=== PATIENT | female | born 1930 | race Caucasian/White ===

== ENCOUNTER 2017-05-23 14:56 | Inpatient (IN) | payer OTHER, MEDICARE ==
[2017-05-23] MEDS ORDERED: ALBUTEROL 200 PUFFS/18 GM MDI IH PRN (16:19)
[2017-05-23] MEDS ORDERED: ACETAMINOPHEN 325 MG TAB PO PRN (16:59)
[2017-05-23] MEDS ORDERED: BISACODYL 10 MG SUPP PR PRN (17:00)
[2017-05-23] MEDS ORDERED: POLYETHYLENE GLYCOL 3350 17 GM PKT PO PRN (17:03)
--- NOTE | 2017-05-23 17:17 | PDOREHIP ---
Admission [facility] - Admission - 3 Day Assessment Period Admission Date/Day 1: 05/23/17 Day 2: 05/24/17 Day 3: 05/25/17 - Active Diagnoses Comorbidities and Co-existing Conditions at Admission: 28427. None of the Above - Skin Conditions Unhealed Pressure Ulcer (1 or more/Stage 1 or >)-Admission: 0. No
--- NOTE | 2017-05-23 17:42 | GHP ---
[f rep st] HISTORY AND PHYSICAL POST ADMISSION PHYSICIAN EVALUATION AND REHABILITATION TREATMENT PLAN DATE OF ADMISSION: 05/23/2017 DATE OF EVALUATION: 05/23/2017. TIME OF EVALUATION: 1625. REFERRING FACILITY: [facility]. REFERRING PHYSICIAN: Dr. Angel IMPAIRMENT GROUP: 2.22. DATE OF ONSET: 05/15/2017. CONSULTING PHYSICIANS: She was also managed by the hospitalist service. REHABILITATION DIAGNOSIS: Debility and cognitive impairment status post subdural hematoma and left frontal craniotomy. ETIOLOGIC DIAGNOSIS: Traumatic, closed injury. DATE OF SURGERY: 05/15/2017. HISTORY OF PRESENT ILLNESS: This patient was traveling in [facility] when she fell and hit her head. She had a head CT the same day with no signs of any significant injury. She returned home to [place], [place], where she had gradual onset of weakness. She was seen and hospitalized and was diagnosed with a subdural hematoma and had daiana hole drainage in early May. She initially did well, but then she returned to the hospital on 05/15/2017, with fatigue and breathlessness and numbness in her hands as well as difficulty using eating utensils. There she was found by head CT to show to have new areas of hypodensity next to her hematoma that were not previously present on her prior CT scan, which was done 3 days after her daiana hole drainage on 2017. She was treated with left frontal craniotomy for evacuation of an acute on chronic subdural hematoma with removal of membranes on 05/15/2017. She did well during her stay. However, she had labile blood pressures, and her blood pressure medication was stopped for part of her hospital stay. Ultimately it was restarted. LABS AND STUDIES DURING STAY: On 05/15/2017, a comprehensive metabolic profile was overall within normal limits, but for an elevated BUN of 24, a creatinine of 1.27, and an estimated GFR of 48. AST was low at 14. PT and INR were normal. CBC was normal. Chest x-ray was normal. Head CT showed 1. New areas of hypodensity in the left frontal lobe, likely related to recent infarct/injury. 2. Resolved pneumocephalus and unchanged residual left subdural collection with trace midline shift to the right. 3. Mild changes of small vessel ischemic disease of indeterminate age, volume loss, and atherosclerosis. 4. Paranasal sinus disease with a left mastoid effusion. Postoperative head CT showed much improvement in volume of blood products. PRECAUTIONS: She is a fall risk. She has aspiration precautions. She has seizure precautions. ACTIVE COMORBIDITIES: She has no active tier 1, tier 2, or tier 3 comorbidities. PAST MEDICAL HISTORY: 1. 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 2. Hypertension. 3. Hypothyroidism. PAST SURGICAL HISTORY: 1. Right hip replacement. 2. Daiana hole treatment of subdural hematoma. PRE-HOSPITAL MEDICATIONS: 1. Lisinopril/hydrochlorothiazide 10/12.5 one-half tablet p.o. daily. 2. Levothyroxine 25 mcg p.o. daily. 3. Ergocalciferol daily. ADMISSION MEDICATIONS: 1. Albuterol 2 puffs q.6 hours p.r.n. 2. Cholecalciferol 1000 units p.o. daily. 3. Lisinopril/hydrochlorothiazide 10/12.5 one-half tablet p.o. daily. 4. Levetiracetam 750 mg p.o. b.i.d. 5. Levothyroxine 25 mcg p.o. daily. ALLERGIES: There are no known drug allergies. PSYCHOSOCIAL HISTORY: She lives with her daughter in [place], [place]. There are several steps to enter and no steps when she is in the house. She has a history of cigarette smoking, but quit about 10 years ago. She has occasional alcohol. 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 FAMILY HISTORY: Noncontributory. REVIEW OF SYSTEMS: She is unsure if she has gained or lost weight recently. She has a reduced appetite. She has normal thirst. She denies cough or dyspnea. She denies fevers or chills. She denies nausea, vomiting, constipation, or diarrhea. She reports that laxatives were discontinued during her hospital stay because she was having loose stools. She has occasional headache, but otherwise is not in pain. She is not aware of difficulty swallowing. She denies vision changes. She is not aware of being weak or having any sensory loss at present. She denies urinary frequency or dysuria. She denies joint pain or joint swelling. She denies skin rash or skin breakdown. She is in good spirits. Otherwise, a 10-point review of systems is negative. PHYSICAL EXAMINATION: VITAL SIGNS: Vitals are not yet available in the chart. GENERAL: This is a well-nourished, well-developed woman, appears her chronologic age, sitting in a wheelchair, dressed in street clothes, cooperative and in no acute distress. HEENT: Extraocular movements are intact. Pupils are equal, round, and reactive to light. Mucous membranes are moist. Dentition is in good condition. She has an uncrowded airway, Mallampati class 1. NECK: Supple. HEART: There is a regular rate and rhythm with no murmurs, rubs, or gallops. LUNGS: Clear to auscultation bilaterally. ABDOMEN: Soft, nontender, nondistended with normoactive bowel sounds and no hepatosplenomegaly. EXTREMITIES: There is no cyanosis, clubbing, or edema. Radial pulses are 2+ bilaterally and dorsalis pedis pulses are 1+ bilaterally. NEUROLOGIC: She is alert and oriented x3. Cranial nerves 2-12 are grossly intact. There is no focal weakness. Sensation is intact to light touch. Deep tendon reflexes are 2+ bilaterally at the biceps and patella, and 1+ bilaterally at the Achilles tendons. Cerebellar testing reveals overall normal [id number] and intact rapid alternating movements. She has some past pointing and impaired contact with target on the right upper extremity. She has pronator drift on the right upper extremity. Regarding cognition she has simple responses to questions and reduced elaboration. CURRENT LEVEL OF FUNCTION PER THE PRE-ADMISSION SCREEN: Regarding diet, feeding , and swallowing, she was on a regular diet with thin liquids. Grooming required setup. Bathing required assistance. Upper extremity dressing was done with minimal assistance, lower extremity dressing with maximal assistance. Toileting required minimal to moderate assistance. Bed mobility required minimal assistance. For transfers she could do a [id number] with minimal assistance. She used a front-wheeled walker. Balance, seated required standby assist. Her endurance was poor. She was able to ambulate 110 feet standby assist with a front-wheeled walker. Regarding cognition, she needed standby to minimal assist. She had short-term memory loss and word-finding difficulty. Regarding safety precautions, she was considered to be a fall risk. There are no changes on the current exam from the pre-admission screen. IMPRESSION: This is an 86-year-old woman who had a fall in March and subsequently developed a subdural hematoma. She had daiana hole drainage of the hematoma in early May, but had recurrent symptoms including weakness and paresthesias in the hands. Repeat brain imaging revealed a new acute on chronic subdural hematoma for which she underwent a left-sided craniotomy and evacuation of blood products. She did well in the hospital. There was some confusion documented as well as an episode of hypotension. Antihypertensives were held and then resumed. She was working with Physical and Occupational Therapies as well as Speech and Language Pathology and appropriate for rehabilitation. Her goal is to complete a rehabilitation stay and then return home with her daughter. For a safe discharge, it is expected that she will achieve modified independence with mobility, ADLs, cognition, and medication management. There will need to be medication education. She will need to have pain management. She will need DME to be determined during her rehabilitation stay. There will need to be neurologic education for the patient and her family. She will have therapy with physical therapy, occupational therapy, and speech and language pathology for 60 minutes per day per discipline on 5-7 days of the week. Her expected duration of stay is 14-17 days. It is anticipated that upon discharge she will continue to benefit from home health services including Occupational Therapy and Physical Therapy as well as a brain injury support group. PLAN: 1. Debility with upper extremity ataxia, balance impairment, and reduced endurance status post craniotomy and evacuation of subdural hematoma. PT and OT to optimize mobility and activities of daily living toward independent or modified independent function for discharge home with her daughter. 2. Cognitive impairment. Query whether some of it is pre-existing given the findings of atrophy on the head CT. Evaluation and treatment per Speech and Language Pathology. 3. Risk for seizures. Continue levetiracetam as ordered. Upon hospital discharge, she will complete 7 days total with 9 more doses starting this evening for 4-1/2 more days. 4. Pain management has been adequate with acetaminophen. 5. Hypertension. Continue lisinopril/hydrochlorothiazide. This is a tiny dose. Monitor blood pressure to ensure that she is not hypotensive. 6. Renal insufficiency upon presentation to the hospital. Labs are also consistent with possible dehydration. She may have had an elevated creatinine due to reduced intravascular volume. Will repeat a basic metabolic profile in the morning. 7. Vitamin D deficiency. Continue vitamin D supplement. 8. Hypothyroidism. Continue levothyroxine. 9. Prophylaxis. She has been ambulating 125 feet, and per hospital notes has been doing this multiple times a day. Anticoagulation is relatively contraindicated so soon after subdural hematoma and brain surgery. Will not prescribe anticoagulation. Will use sequential compression devices. Encourage increased mobility. FOLLOWUP: She has an appointment set to follow up with neurosurgeon, Irene Angel DO, on 05/30/2017 or 05/31/2017. Will have further conversation with Dr. Angel or his office regarding whether this followup can take place after her discharge from inpatient rehabilitation. /[id number]/MODL MTDD
[2017-05-23 19:26] VITALS: RESP 18
[2017-05-23] MEDS ORDERED: levETIRAcetam 250 MG TAB PO SCH (21:00)
[2017-05-24] MEDS ORDERED: ONDANSETRON DISINTEGRATING 4 MG TAB PO ONE (03:00)
[2017-05-24 04:53] VITALS: TEMP 97.7
[2017-05-24] MEDS ORDERED: LEVOTHYROXINE 25 MCG TAB PO SCH (06:00)
[2017-05-24 06:37] VITALS: BP 122/77; PULSE 84; O2SAT 91
[2017-05-24 08:12] LABS: PLATELET COUNT 271 10^3/uL (150-400)
[2017-05-24] MEDS ORDERED: LISINOPRIL/HCTZ 10/12.5 MG 1 EA TAB PO SCH (09:00)
[2017-05-24] MEDS ORDERED: CHOLECALCIFEROL VIT D3 1,000 UNITS TAB PO SCH (09:00)
== END 2017-05-24 07:40 | disposition still patient (30) | DRG 946 ==
LOC: BREH 16:11
PROVIDERS: ADMIT Internal Medicine; ATTEND Internal Medicine
DX: S06.5X9D Traumatic subdural hemorrhage with loss of consciousness of unspecified duration, subsequent encounter (principal); R53.81 Other malaise; I10 Essential (primary) hypertension; E03.9 Hypothyroidism, unspecified; E55.9 Vitamin D deficiency, unspecified; N28.9 Disorder of kidney and ureter, unspecified; Z96.641 Presence of right artificial hip joint; W19.XXXD Unspecified fall, subsequent encounter

== ENCOUNTER 2017-05-24 08:12 | Inpatient (IN) | payer OTHER, MEDICARE ==
--- NOTE | 2017-05-24 09:03 | CPEKG ---
Heart Rate: 114 RR Interval: 526 P-R Interval: 140 QRSD Interval: 90 QT Interval: 336 QTC Interval: 463 P [place]: 79 QRS [place]: 83 T Wave [place]: 24 EKG Severity - BORDERLINE ECG - EKG Impression: SINUS TACHYCARDIA EKG Impression: PROBABLE LEFT ATRIAL ABNORMALITY EKG Impression: CONSIDER RIGHT VENTRICULAR HYPERTROPHY Electronically Signed By: Abdirahman Amos 24-May-2017 14:58:58
--- NOTE | 2017-05-24 09:14 | EDPHY ---
H & P Stated Complaint: Sent from rehab, syncopal episode this morning Time Seen by Provider: 05/24/17 08:51 - Personal History Current Tetanus Diphtheria and Acellular Pertussis (TDAP): Yes - Medical/Surgical History Hx Asthma: No Hx Chronic Respiratory Disease: No Hx Diabetes: No Hx Cardiac Disease: No Hx Renal Disease: No Hx Cirrhosis: No Hx Alcoholism: No Hx HIV/AIDS: No Hx Splenectomy or Spleen Trauma: No Other PMH: TBI. Right hip replacement. - Social History Smoking Status: Never smoked Constitutional: Initial Vital Signs Temperature (C) 36.6 C 05/24/17 08:34 Heart Rate 111 H 05/24/17 08:34 Respiratory Rate 18 05/24/17 08:34 Blood Pressure 121/75 H 05/24/17 08:34 O2 Sat (%) 97 05/24/17 08:34 O2 Delivery Mode Nasal Cannula O2 (L/minute) 1 Allergies/Adverse Reactions: No Known Allergies Allergy (Unverified 05/23/17 16:07) Home Medications: Medication Instructions Recorded Albuterol [Ventolin Hfa Inhaler] 2 puffs IH Q6HRS PRN 05/23/17 Cholecalciferol Vit D3 [Vitamin D3 1,000 units PO DAILY 05/23/17 (*)] Levothyroxine [Synthroid 25 mcg 25 mcg PO DAILY06 05/23/17 (*)] Lisinopril/Hydrochlorothiazide 0.5 each PO DAILY 05/23/17 [Lisinopril-Hctz 10-12.5 mg Tab] levETIRAcetam [Keppra] 750 mg PO BID 05/23/17 Medical Decision Making - Diagnostics Imaging Results: Imaging Impressions Head CT 05/24/17 09:22 Impression: 1. Mild to moderate age-related atrophy. 2. Postoperative changes from left-sided craniotomy. Small residual heterogeneous subdural hematoma collection is noted over the left parietal lobe superiorly measuring 4 to 6 mm in thickness. 3. Hypodense area left frontal lobe superiorly underlying the craniotomy that could represent sequela of previous trauma versus infarct or postoperative change. 4. Otherwise, mild nonspecific hypodensities in the white matter of bilateral cerebral hemispheres. Differential diagnosis includes microvascular ischemic disease, post-infectious/post-inflammatory sequela, atypical demyelinating disease, or migraine-related sequela. Small white matter lacunar infarcts may also have this appearance. If symptoms worsen, additional imaging may be necessary. Findings reviewed with Abdirahman Amos MD at 10:45 hour, 05/24/2017. Imaging: Discussed imaging studies w/ weight caller Radiologist ED Course/Re-evaluation: CHIEF COMPLAINT: Syncope HISTORY OF PRESENT ILLNESS: This patient is an 86 y/o female with history of hypertension s/p cardiotomy secondary to subdural bleed in early May presenting following a syncopal episode. Arrives at the request of Dr. Salinas at the patient's rehabilitation facility. She was sitting on the toilet and leaned forward to get up at which point she felt dizzy, and lightheaded and fell to the ground. She states she fainted but denies any prolonged LOC. Staff felt the patient was not responding normally and seemed "stiff" for about 10 minutes following this episode. The patient denies blurred vision, or any stiffness, jerking, or seizure activity. She endorses some word-finding difficulty which has been present since her initial injury. This has never happened before. She feels well currently. She has had an otherwise routine postoperative course. The patient is taking Keppra for seizure prevention. Additionally, the patient's daughter states the patient had similar event last Monday when she was found unresponsive. This event was attributed to hypotension. She has had difficulty regulating her blood pressure lately, very labile and adjusting medications. REVIEW OF SYSTEMS: A 10 point review of systems was performed and is negative with the exception of the elements mentioned in the history of present illness. PHYSICAL EXAM: HR, BP, O2 Sat, RR. Temp noted General Appearance: Alert, well hydrated, appropriate, and non-toxic appearing. Head: Atraumatic without scalp tenderness or obvious injury Eyes: Pupils equal, round, reactive to light and accommodation, EOMI, no trauma , no injection. Ears: Clear bilaterally, no perforation, normal landmarks Nose: Atraumatic, no rhinorrhea, clear. Throat: There is no erythema or exudates, no lesions, normal tonsils, mucus membranes moist. Neck: Supple, 2+ carotid upstroke, nontender, no lymphadenopathy. Respiratory: No retractions, no distress, no wheezes, and no accessory muscle use. Lungs are clear to auscultation bilaterally. Cardiovascular: Regular rate and rhythm, no murmurs, rubs, or gallops. Bilateral carotid, radial, dorsalis pedis, and posterior tibial pulses intact. Good capillary refill all extremities. Gastrointestinal: Abdomen is soft, nontender, non-distended, no masses, no rebound, no guarding, no peritoneal signs. Musculoskeletal: Normal active ROM of all extremities, atraumatic. Neurological: Alert, appropriate, and interactive. The patient has normal DTRs and non-focal cranial nerves, motor, sensory, and cerebellar exam. Skin: No rashes, good turgor, no nodules on palpation. Past medical history: Hypertension. Hypothyroidism. Degenerative disc disease of hip s/p right hip replacement. Past surgical history: Right hip replacement. Family history: Noncontributory. Social history: Daughter at bedside. DIAGNOSTICS/PROCEDURES/CRITICAL CARE TIME: The 12 lead EKG was interpreted by myself. See hard copy and/or "tracemaster" electronic copy for interpretation. DIFFERENTIAL DIAGNOSIS: The differential diagnosis for the patient's syncope included but was not limited to vasovagal syncope, seizure, arrhythmia, dehydration, cardiogenic causes, neurogenic causes, and blood loss. MEDICAL DECISION MAKIN86 y/o female arriving from her rehabilitation center following a possible syncopal event vs. seizure. She is neurologically intact on my exam. Plan for EKG, labs including CBC, chemistries, UA. Plan for noncontrast CT head. 10:[address] Schmidt, radiologist regarding the patient's CT. Plan to obtain records from [facility] to compare the patient's pre- and post-operative scans. Prolactin elevated at 19.6 Laboratory studies otherwise largely unremarkable. UA negative for UTI. 11:09 Spoke with hospitalist service. Dr. Mcneal accepts admission to PCU for syncope vs seizure. - Data Points Laboratory Results: Laboratory Results 05/24/17 09:10 05/24/17 09:10 05/24/17 05/24/17 05/24/17 10:10 09:10 09:10 WBC RBC Hgb Hct MCV MCH MCHC RDW Plt Count MPV Neut % (Auto) Lymph % (Auto) Nicholas % (Auto) Eos % (Auto) Baso % (Auto) Nucleat RBC Rel Count Absolute Neuts (auto) Absolute Lymphs (auto) Absolute Monos (auto) Absolute Eos (auto) Absolute Basos (auto) Absolute Nucleated RBC Immature Gran % Immature Gran # Sodium 139 mEq/L mEq/L (135-145) Potassium 4.6 mEq/L mEq/L (3.5-5.2) Chloride 101 mEq/L mEq/L (97-110) Carbon Dioxide 24 mEq/l mEq/l (22-31) Anion Gap 14 mEq/L mEq/L (8-16) BUN 24 mg/dL H mg/dL (7-23) Creatinine 0.9 mg/dL mg/dL (0.6-1.0) Estimated GFR 60 Glucose 121 mg/dL H mg/dL (70-100) Calcium 9.8 mg/dL mg/dL (8.5-10.4) Creatine Kinase 25 IU/L IU/L (0-156) Prolactin 19.6 ng/mL H ng/mL (3.0-18.6) Urine Color YELLOW Urine Appearance HAZY Urine pH 6.0 (5.0-7.5) Ur Specific [place] 1.023 (1.002-1.030) Urine Protein NEGATIVE (NEGATIVE) Urine Ketones NEGATIVE (NEGATIVE) Urine Blood NEGATIVE (NEGATIVE) Urine Nitrate NEGATIVE (NEGATIVE) Urine Bilirubin NEGATIVE (NEGATIVE) Urine Urobilinogen NEGATIVE EU EU (0.2-1.0) Ur Leukocyte Esterase NEGATIVE (NEGATIVE) Urine Glucose NEGATIVE (NEGATIVE) 05/24/17 09:10 WBC 8.36 10^3/uL 10^3/uL (3.80-9.50) RBC 4.47 10^6/uL 10^6/uL (4.18-5.33) Hgb 13.3 g/dL g/dL (12.6-16.3) Hct 41.3 % % (38.0-47.0) MCV 92.4 fL fL (81.5-99.8) MCH 29.8 pg pg (27.9-34.1) MCHC 32.2 g/dL L g/dL (32.4-36.7) RDW 12.7 % % (11.5-15.2) Plt Count 256 10^3/uL 10^3/uL (150-400) MPV 10.3 fL fL (8.7-11.7) Neut % (Auto) 74.6 % H % (39.3-74.2) Lymph % (Auto) 15.9 % % (15.0-45.0) Nicholas % (Auto) 7.5 % % (4.5-13.0) Eos % (Auto) 1.1 % % (0.6-7.6) Baso % (Auto) 0.5 % % (0.3-1.7) Nucleat RBC Rel Count 0.0 % % (0.0-0.2) Absolute Neuts (auto) 6.24 10^3/uL 10^3/uL (1.70-6.50) Absolute Lymphs (auto) 1.33 10^3/uL 10^3/uL (1.00-3.00) Absolute Monos (auto) 0.63 10^3/uL 10^3/uL (0.30-0.80) Absolute Eos (auto) 0.09 10^3/uL 10^3/uL (0.03-0.40) Absolute Basos (auto) 0.04 10^3/uL 10^3/uL (0.02-0.10) Absolute Nucleated RBC 0.00 10^3/uL 10^3/uL (0-0.01) Immature Gran % 0.4 % % (0.0-1.1) Immature Gran # 0.03 10^3/uL 10^3/uL (0.00-0.10) Sodium Potassium Chloride Carbon Dioxide Anion Gap BUN Creatinine Estimated GFR Glucose Calcium Creatine Kinase Prolactin Urine Color Urine Appearance Urine pH Ur Specific [place] Urine Protein Urine Ketones Urine Blood Urine Nitrate Urine Bilirubin Urine Urobilinogen Ur Leukocyte Esterase Urine Glucose Medications Given: Ondansetron HCl (Zofran) 4 mg IVP Q4HRS PRN PRN Reason: Nausea/Vomiting, Can't Take PO Stop: 11/20/17 11:49 Last Admin: 05/24/17 12:56 Dose: 4 mg Departure - Departure Disposition: [facility] Acute Clinical Impression: Syncope Qualifiers: Syncope type: unspecified Qualified Code(s): R55 - Syncope and collapse Condition: Fair Report Scribed for: Abdirahman Amos Report Scribed by: Malika Robert Date of Report: 05/24/17 Time of Report: 13:04
[2017-05-24 09:28] LABS: PLATELET COUNT 256 10^3/uL (150-400)
[2017-05-24] MEDS ORDERED: ONDANSETRON DISINTEGRATING 4 MG TAB PO PRN (11:50)
[2017-05-24] MEDS ORDERED: ONDANSETRON 4 MG/2 ML VIAL IVP PRN (11:50)
[2017-05-24] MEDS: LR 1,000 ML IV SCH ×2 (14:23→21:39)
--- NOTE | 2017-05-24 15:28 | CPEKG ---
Heart Rate: 116 RR Interval: 517 P-R Interval: 128 QRSD Interval: 92 QT Interval: 320 QTC Interval: 445 P [place]: 78 QRS [place]: 86 T Wave [place]: 10 EKG Severity - ABNORMAL ECG - EKG Impression: SINUS TACHYCARDIA EKG Impression: PROBABLE LEFT ATRIAL ABNORMALITY EKG Impression: BORDERLINE RIGHT AXIS DEVIATION EKG Impression: BORDERLINE T WAVE ABNORMALITIES Electronically Signed For: Abdirahman Amos 24-May-2017 15:29:55
[2017-05-24] MEDS ORDERED: NON-FORMULARY NEW DRUG (Albuterol 2 PUFFS) IH PRN (17:05)
--- NOTE | 2017-05-24 17:10 | PDGENHP ---
History and Physical - Chief Complaint Acute syncope - History of Present Illness Primary care provider: Dr. Ocasio HPI: 86-year-old female presenting with acute syncope characterized as loss of consciousness with associated unresponsiveness, onset of symptoms 6:30 a.m. While the patient was sitting on the toilet, with some associated preceding dizziness and lightheadedness. Per staff report, the patient fell from the toilet and was reportedly unresponsive, duration of symptoms approximately 10 min, during which time she was reported as "stiff", did not demonstrate any evidence of seizure-like activity and the episodes spontaneous through resolved without intervention. Is very similar in character to an episode the patient experienced 5 days ago, which was witnessed by the patient's daughter while she was at [facility]. On the evening prior to this presentation, the patient notably had a left frontal headache, for which she received Tylenol. The Tylenol reportedly alleviated the headache, but resulted in nausea, the patient subsequently received Zofran around 2:50 a.m.. The patient's nausea persisted, and around 6:30 a.m., the patient got up to use the restroom. Then she experienced the aforementioned loss of consciousness. The patient has otherwise been taking all of her previously prescribed medications and she denies any other neurologic deficits. While she was in the emergency department this morning, and was not able to eat any food for 6 hr, the patient did experience some fatigue and worsened expressive aphasia, which the patient's daughter reports has become common place after her subdural hematoma when she experiences fatigue. History Information - Allergies/Home Medication List Allergies/Adverse Reactions: No Known Allergies Allergy (Unverified 05/23/17 16:07) Home Medications: Albuterol [Ventolin Hfa Inhaler] 2 puffs IH Q6HRS PRN 05/23/17 [Last Taken Unknown] Cholecalciferol Vit D3 [Vitamin D3 (*)] 1,000 units PO DAILY 05/23/17 [Last Taken Unknown] Levothyroxine [Synthroid 25 mcg (*)] 25 mcg PO DAILY06 05/23/17 [Last Taken ] Lisinopril/Hydrochlorothiazide [Lisinopril-Hctz 10-12.5 mg Tab] 0.5 each PO DAILY 05/23/17 [Last Taken 05/24/17] levETIRAcetam [Keppra] 750 mg PO BID 05/23/17 [Last Taken 05/23/17] Acetaminophen [Tylenol 325mg (*)] 650 mg PO Q6 PRN 05/24/17 [Last Taken 05/23/17 ] I have personally reviewed and updated: family history, medical history, social history, surgical history - Past Medical History Additional medical history: Closed head injury March of 2017 with subsequent left-sided subdural hematoma and daiana holes placed on 05/04/2017, worsening symptoms on 05/15, resulting in left-sided craniotomy, with resultant expressive aphasia, ataxia. Hypertension. Hypothyroidism - Surgical History Additional surgical history: Right total hip replacement. 05/04 bur holes, 05/15 craniotomy - Family History Additional family history: Father with myocardial infarction at age 62, daughter with atrial fibrillation, no venous thromboembolism - Social History Smoking Status: Former smoker Alcohol Use: None Drug Use: None Additional social history: Previously residing with daughter in [place], [place] Review of Systems Review of Systems: ROS: 10pt was reviewed & negative except for what was stated in HPI & below Constitutional: Reports: weakness Gastrointestinal: Reports: nausea Neurological: Reports: headache, other (Loss of consciousness) Physical Exam Physical Exam: Temp Pulse Resp BP Pulse Ox 36.4 C 111 H 16 103/84 H 93 05/24/17 16:00 05/24/17 16:00 05/24/17 16:00 05/24/17 16:00 05/24/17 16:00 Constitutional: no apparent distress, appears nourished, not in pain Eyes: PERRL, anicteric sclera, EOMI Ears, Nose, Mouth, Throat: moist mucous membranes, hearing normal, ears appear normal, no oral mucosal ulcers Cardiovascular: regular rate and rhythym, no murmur, rub, or gallop, No edema Respiratory: no respiratory distress, no rales or rhonchi, clear to auscultation Gastrointestinal: normoactive bowel sounds, soft, non-tender abdomen, no palpable masses Skin: No erythema (Or induration around the left scalp incision site), No rash Neurologic: sensation intact bilaterally, CN II-XII Intact (Mild left tongue deviation), facial droop (Mild left mouth palsy), other (Mild expressive aphasia ), No AAOx3, No weakness (Motor strength 5/5 bilateral upper and lower extremities) Psychiatric: interacting appropriately, not anxious, not encephalopathic, thought process linear Lab Data & Imaging Review 05/24/17 09:10 05/24/17 09:10 WBC 8.36 10^3/uL (3.80-9.50) 05/24/17 09:10 RBC 4.47 10^6/uL (4.18-5.33) 05/24/17 09:10 Hgb 13.3 g/dL (12.6-16.3) 05/24/17 09:10 Hct 41.3 % (38.0-47.0) 05/24/17 09:10 MCV 92.4 fL (81.5-99.8) 05/24/17 09:10 MCH 29.8 pg (27.9-34.1) 05/24/17 09:10 MCHC 32.2 g/dL (32.4-36.7) L 05/24/17 09:10 RDW 12.7 % (11.5-15.2) 05/24/17 09:10 Plt Count 256 10^3/uL (150-400) 05/24/17 09:10 MPV 10.3 fL (8.7-11.7) 05/24/17 09:10 Neut % (Auto) 74.6 % (39.3-74.2) H 05/24/17 09:10 Lymph % (Auto) 15.9 % (15.0-45.0) 05/24/17 09:10 [place] % (Auto) 7.5 % (4.5-13.0) 05/24/17 09:10 Eos % (Auto) 1.1 % (0.6-7.6) 05/24/17 09:10 Baso % (Auto) 0.5 % (0.3-1.7) 05/24/17 09:10 Nucleat RBC Rel Count 0.0 % (0.0-0.2) 05/24/17 09:10 Absolute Neuts (auto) 6.24 10^3/uL (1.70-6.50) 05/24/17 09:10 Absolute Lymphs (auto) 1.33 10^3/uL (1.00-3.00) 05/24/17 09:10 Absolute Monos (auto) 0.63 10^3/uL (0.30-0.80) 05/24/17 09:10 Absolute Eos (auto) 0.09 10^3/uL (0.03-0.40) 05/24/17 09:10 Absolute Basos (auto) 0.04 10^3/uL (0.02-0.10) 05/24/17 09:10 Absolute Nucleated RBC 0.00 10^3/uL (0-0.01) 05/24/17 09:10 Immature Gran % 0.4 % (0.0-1.1) 05/24/17 09:10 Immature Gran # 0.03 10^3/uL (0.00-0.10) 05/24/17 09:10 VBG Lactic Acid 1.2 mmol/L (0.7-2.1) 05/24/17 11:59 Sodium 139 mEq/L (135-145) 05/24/17 09:10 Potassium 4.6 mEq/L (3.5-5.2) 05/24/17 09:10 Chloride 101 mEq/L (97-110) 05/24/17 09:10 Carbon Dioxide 24 mEq/l (22-31) 05/24/17 09:10 Anion Gap 14 mEq/L (8-16) 05/24/17 09:10 BUN 24 mg/dL (7-23) H 05/24/17 09:10 Creatinine 0.9 mg/dL (0.6-1.0) 05/24/17 09:10 Estimated GFR 60 05/24/17 09:10 Glucose 121 mg/dL (70-100) H 05/24/17 09:10 Calcium 9.8 mg/dL (8.5-10.4) 05/24/17 09:10 Creatine Kinase 25 IU/L (0-156) 05/24/17 09:10 Prolactin 19.6 ng/mL (3.0-18.6) H 05/24/17 09:10 Urine Color YELLOW 05/24/17 10:10 Urine Appearance HAZY 05/24/17 10:10 Urine pH 6.0 (5.0-7.5) 05/24/17 10:10 Ur Specific [place] 1.023 (1.002-1.030) 05/24/17 10:10 Urine Protein NEGATIVE (NEGATIVE) 05/24/17 10:10 Urine Ketones NEGATIVE (NEGATIVE) 05/24/17 10:10 Urine Blood NEGATIVE (NEGATIVE) 05/24/17 10:10 Urine Nitrate NEGATIVE (NEGATIVE) 05/24/17 10:10 Urine Bilirubin NEGATIVE (NEGATIVE) 05/24/17 10:10 Urine Urobilinogen NEGATIVE EU (0.2-1.0) 05/24/17 10:10 Ur Leukocyte Esterase NEGATIVE (NEGATIVE) 05/24/17 10:10 Urine Glucose NEGATIVE (NEGATIVE) 05/24/17 10:10 Visualized and Interpreted EKG results: Yes EKG Interpretation: Positive for: other (Sinus tachycardia) Assessment & Plan Assessment: 86-year-old female presenting with acute syncope in the setting of recent traumatic brain injury and subdural hematoma Plan: 1. Syncope. Acute, new problem this provider, further workup indicated. Most likely etiology is vasovagal episode, as this occurred while the patient was using the bathroom, and has occurred approximately 5 days ago in similar circumstances. That being said, the patient could certainly have unmasked cardiac valvular abnormality, a arrhythmia, vertebrobasilar insufficiency, and these possibilities will be ruled out. She has also recently been hospitalized we should rule out pulmonary embolism. She has also recently been exposed to healthcare setting we should rule out viral precipitant as a cause for weakness and other symptoms. Believe it is less likely that she has had a seizure given her normal lactic acid level, normal CPK, normal serum bicarbonate level, but will monitor her on seizure precautions and continue her Keppra. -echo, carotid ultrasounds -telemetry -respiratory viral panel -D-dimer -orthostatic vital signs -continue IV fluids -repeat chemistry labs in a.m. 2. Traumatic brain injury with subdural hematoma. Head CT demonstrating no significant bleed, patient is a 46 mm area at the previous craniotomy site, with diffuse white matter disease and atrophy -outside records have been ordered from [facility] for comparison -reassured the patient and her daughter that if the patient experiences any neurologic changes, we will immediately repeat a noncontrast head CT and will be able to compare the new image with hours from presentation -the patient currently has minimal neuro deficits, including mild expressive aphasia, very mild left mouth palsy -continue Keppra as needed -continue as needed Tylenol, patient desires no stronger medications at this time -continue to work with PT OT, EQUIPMENT TESTER, cog therapy, anticipate patient will require ongoing inpatient rehab when she has received adequate workup for syncope 3. Chronic hypertension. Patient may be slightly overmedicated for her chronic hypertension and this may have resulted in propensity for vasovagal episodes -I reviewed outside records including 05/23/2017 history and physical by Dr. Ton Salinas, his report, he notes that the patient had labile blood pressures at [facility], and initially her home antihypertensive was held, then was re-initiated for episodes of hypertension -I would recommend on coupling patient's combination therapy, and only administering lisinopril 5 mg daily, holding her hydrochlorothiazide, and monitoring her systolic blood pressures -patient's goal systolic blood pressure should be between 120 and 140, if the patient is consistently less than 110, I recommend halving her lisinopril dose Diet. Regular Prophylaxis. High risk patient, SCDs, hold pharm given recent bleed Code. Full Disposition. Anticipated discharge is 05/25, pending further workup as outlined above. I have discussed patient's presentation with Maria Isabel Jade, hospitalist provider, she has signed out the patient to me for evaluation.
[2017-05-24] MEDS ORDERED: ALBUTEROL 60 PUFFS/8 GM MDI IH PRN (17:14)
[2017-05-24] MEDS: levETIRAcetam 500 MG TAB PO SCH (19:40)
[2017-05-24] MEDS ORDERED: NON-FORMULARY NEW DRUG (Levetiracetam [Keppra] 750 MG) PO SCH (21:00)
[2017-05-25 04:37] LABS: PLATELET COUNT 239 10^3/uL (150-400)
[2017-05-25] MEDS: LEVOTHYROXINE 25 MCG TAB PO SCH (06:16)
[2017-05-25] MEDS: levETIRAcetam 500 MG TAB PO SCH ×2 (08:42→20:01)
[2017-05-25] MEDS: LISINOPRIL 5 MG TAB PO SCH (08:42)
[2017-05-25] MEDS: CHOLECALCIFEROL VIT D3 1,000 UNITS TAB PO SCH (09:12)
--- NOTE | 2017-05-25 09:32 | HOSPPROG ---
Hospitalist Progress Note Assessment/Plan: * Recurrent syncope -may be vasovagal, but given recurrent nature and other findings - will pursue further work-up -ECHO pending -mild positive orthostatic - continue to follow * Possible subclavian steal, rule out drop attacks -check BP both arms -check CTA neck vessels -consider transcranial dopplers * Positive ddimer -patient presented tachycardic, still appears SOB today per my exam -check CTA chest rule out PE, this will also eval subclavian artery * HTN -DC HCTZ -continue low dose lisinopril * Recent subdural s/p [place] hole and craniectomy -head CT without new bleed -continue Keppra * Left frontal lobe hypodensity -trauma vs. infarct vs. post-op change -this may explain emotional lability * Cognitive impairment - ? new since trauma Subjective: Crying, states she is disappointed. "short night" meaning little sleep. Denies CP/SOB. Poor historian. Objective: Vital Signs Temp Pulse Resp BP Pulse Ox 36.8 C 90 18 116/72 97 05/25/17 08:00 05/25/17 08:00 05/25/17 08:00 05/25/17 08:00 05/25/17 08:00 Laboratory Results 05/25/17 04:03 05/25/17 04:03 05/24/17 05/25/17 05/26/17 05:59 05:59 05:59 Intake Total 2300 Output Total [address] reviewed - no acute bleed Carotid US - reversal of flow in vertebral artery EKG viewed, my personal interpretation is - sinus tachy - no ischemic ST changes - Physical Exam Constitutional: no apparent distress, appears nourished, not in pain Cardiovascular: regular rate and rhythym, no murmur, rub, or gallop Respiratory: no respiratory distress, no rales or rhonchi, clear to auscultation Gastrointestinal: normoactive bowel sounds, soft, non-tender abdomen, no palpable masses Skin: no rashes or abrasions, no fluctuance, no induration Neurologic: weakness, No AAOx3 Psychiatric: encephalopathic, anxious, depressed, agitated, No interacting appropriately ICD10 Worksheet Patient Problems: Problems Problem Status Onset Syncope Acute S/P craniotomy Acute SDH (subdural hematoma) Acute
--- NOTE | 2017-05-25 10:51 | PDMN ---
Medical Necessity Medical necessity: change to IP; los>2mn for recurrent syncope w/mild orthostasis, possible subclavian steal, positive D-dimer; requires further w/u w /echo, follow orthostatics, r/o PE; comorbid recent SDH s/p [place] hole and craniectomy, L frontal lobe hypodensity: trauma vs infarct vs post op change, htn, and cog impairment possibly r/t recent trauma; per order and progress note 05/25/17
--- NOTE | 2017-05-25 11:23 | CPEKG ---
Heart Rate: 85 RR Interval: 706 P-R Interval: 132 QRSD Interval: 80 QT Interval: 424 QTC Interval: 505 P [place]: 81 QRS [place]: 77 T Wave [place]: -79 EKG Severity - ABNORMAL ECG - EKG Impression: SINUS RHYTHM EKG Impression: NONSPECIFIC T ABNORMALITIES, DIFFUSE LEADS EKG Impression: CONSISTENT WITH PROLONGED QT INTERVAL Electronically Signed By: Jonnathan Narvaez 25-May-2017 17:32:20
--- NOTE | 2017-05-25 11:36 | ECHO ---
[email or web address] [address] [address] Main: [phone] Fax: [email or web address] Echocardiogram Name: CASS DODSON MR#: [id number] Study Date: 05/25/2017 Study Time: 09:09 AM Date of : 1930 Age: 86 year(s) Height: 165.1 cm (65 in.) Weight: 48.99 kg (108 lb.) BSA: 1.52 m2 Gender: Female Examination: Echo Indication: Eval for valve issues/syncope, subdural hematoma/hx HTN Image Quality: Technically Difficult Contrast: Requested by: Carlo Mcneal BP: 116 mmHg/77 mmHg Heart Rate: Rhythm: Indication: Eval for valve issues/syncope, subdural hematoma/hx HTN Procedure Staff Loan Broker: Concepción Davidson [facility] Reading Physician: Felecia Sullivan Requesting Provider: Conclusions: Normal size left ventricle. No LV hypertrophy. Normal global systolic LV function. The ejection fraction is visually estimated to be 65 %. No regional wall motion abnormality. Mildly to moderately dilated right ventricle. Mildly to moderately reduced right ventricular function. Flattened interventricular septum consistent with right ventricular pressure and/or volume overload septum. The right atrium is mildly dilated. Mild mitral valve regurgitation is present. Mild tricuspid regurgitation is present. The pulmonary artery pressure is normal. No prior echo Measurements: Chambers Valvular Assessment AV/MV Valvular Assessment TV/PV Normal Normal Normal Name Value Range Name Value Range Name Value Range [place] (2D): 3.1 cm (1.4 cm-2.6 AV meanP mmHg ( - ) TR Vmax: 2.54 mm/s ( - ) cm) MV E Vmax: 0.50 m/s ( - ) TR PGmax: 26 mmHg ( - ) IVSd (2D): 1.0 cm (0.6 cm-1.1 MV A Vmax: 0.76 m/s ( - ) syst. PAP: 31 mmHg ( - ) cm) MV E/A: 0.66 ( - ) LVDd (2D): 2.5 cm (3.9 cm-5.3 cm) LVDs (2D): 1.6 cm (2.1 cm-4 cm) LVPWd (2D): 0.7 cm ( - ) Visual EF: 65 % Patient: CASS DODSON Study Date: 05/25/2017 Page 1 of 2 09:09 AM Continued Measurements: Chambers Valvular Assessment AV/MV Valvular Assessment TV/PV Name Value Name Value Name Value LADs: 1.8 cm MV E/E' Septal: 8.20 CVP (est.): 5 mmHg MV E/E' Lateral: 9.00 Findings: Left Ventricle: Normal size left ventricle. No LV hypertrophy. Normal global systolic LV function. The ejection fraction is visually estimated to be 65 %. No regional wall motion abnormality. Right Ventricle: Mildly to moderately dilated right ventricle. Mildly to moderately reduced right ventricular function. There is a moderator band noted in the right ventricle. Flattened interventricular septum consistent with right ventricular pressure and/or volume overload septum. Left Atrium: The left atrium is normal in size. Right Atrium: The right atrium is mildly dilated. Mitral Valve: The mitral valve is normal in appearance and function. Mild mitral valve regurgitation is present. Aortic Valve: The aortic valve is normal in appearance and function. Tricuspid Valve: The tricuspid valve is normal in appearance and function. Mild tricuspid regurgitation is present. The pulmonary artery pressure is normal. Pulmonic Valve: Pulmonary valve not well visualized. Aorta: The aorta is normal. Pericardium: No pericardial effusion. (No Signature Object) Patient: CASS DODSON Study Date: 05/25/2017 Page 2 of 2 09:09 AM [id number]
[2017-05-25] MEDS ORDERED: IOPAMIDOL (ISOVUE 370) 100 ML BTL IV ONE (11:43)
[2017-05-25] MEDS ORDERED: HEPARIN 10,000 UNIT/10 ML MDV (1,000 UNIT/ML) IVP PRN (12:57)
--- NOTE | 2017-05-25 13:29 | ASMTCASEMG ---
Living Arrangements What is your living Answers: Alone arrangement? Who do you live with? Type Of Residence What kind of residence do Answers: House you live in? Discharge Plan Comments Coordination Status Comments Notes: Pts case discussed in morning rounds. Pt is a 86 y/o female admitted for syncope vs seizure. Therapies have been ordered and pending. Pt was recently discharge from [facility] to [facility] inpatient rehab. CM spoke w/ Yanet from inpatient rehab and the plan is for pt to return. Dr. Amaral put in an order for inpatient rehab to evaluate. Neurology has been consulted. CM to follow. Plan: [facility] inpatient rehab Date Signed: 05/25/2017 01:28 PM Electronically Signed By:BRAD Mendez
[2017-05-25] MEDS: HEPARIN/DEXTROSE 500 ML IV SCH (13:46)
[2017-05-25 14:06] LABS: INR 1.09 (0.83-1.16); PROTIME(PATIENT) 14.3 SEC (12.0-15.0)
--- NOTE | 2017-05-25 15:20 | GCON ---
[f rep st] CONSULTATION NEUROSURGICAL CONSULTATION DATE OF CONSULTATION: 05/25/2017 REASON FOR CONSULTATION: Evaluate for anticoagulation. HISTORY OF PRESENT ILLNESS: The patient is an 86-year-old female who was at [facility] last week. She underwent surgery for evacuation of a subdural hematoma. [facility] was [facility], where she was doing therapy. She was admitted to [facility] on 2017, after undergoing a syncopal episode. Head CT showed minimal residual subdural hematoma with a small amount of postoperative acute blood. During the course of the admission, she was found to have bilateral pulmonary emboli. Internal Medicine was requesting consultation to evaluate for anticoagulation. The patient currently denies any headaches, nausea or vomiting. She denies any weakness or paresthesias. PAST MEDICAL HISTORY: 1. Closed head injury in 2017. 2. Hypertension. 3. Hyperthyroidism. MEDICATIONS: Prior to admission, are albuterol, vitamin D, Synthroid, lisinopril, hydrochlorothiazide, Keppra, and Tylenol. ALLERGIES: No known drug allergies. FAMILY HISTORY: Patient has no family history of cranial problems. Her father had a myocardial infarction at 62. Daughter has a history of atrial fibrillation. SOCIAL HISTORY: Patient is with grown children. She drinks alcohol occasionally. Denies smoking. REVIEW OF SYSTEMS: Negative. PHYSICAL EXAM: GENERAL: Patient is an 86-year-old female lying in bed, in no apparent distress. HEAD, EYES, EARS, NOSE, AND THROAT: Negative to drainage. EXTREMITIES: [place], warm and dry. NEUROLOGICAL: Patient is awake, alert, oriented x4. Pupils equal, round, reactive to light. Extraocular motions are intact. There is no evidence of facial droop. Tongue and uvula are midline. Spinal accessory muscles are intact. Her motor strength is 5/5 in arms and legs. Sensation is grossly intact to light touch in her arms and legs. Deep tendon reflexes are 1/4 throughout. There is no pronator drift. DIAGNOSTIC STUDIES: A head CT without contrast, [facility] on 05/24/2017, shows postoperative changes from the left-sided craniotomy. There is minimal extra-axial fluid with only a small amount of acute hemorrhage. IMPRESSION: This is an 86-year-old female who is recently postoperative from a left-sided craniotomy for evacuation of a subdural hematoma. She is neurologically stable, but has bilateral pulmonary emboli. PLAN: Above discussed in detail with the patient. This patient was seen and examined Dr. Jovany Hawkins. He discussed this with Dr. Amaral from the hospitalist group. At this point in time, there was minimal blood on her head CT. Given her bilateral pulmonary emboli, it was discussed that it is reasonable to have her start anticoagulation, preferably with something that is reversible. We feel that the risk of progression of her pulmonary thrombus or further pulmonary embolic events is greater than the risk of hemorrhaging in her brain. The patient does understand this risk. At this point in time, she does not need any further head CTs unless she has a change in her neurological status. We will sign off. Please call with any neurological questions. /[id number]/MODL MTDD
--- NOTE | 2017-05-25 19:06 | GCON ---
[f rep st] CONSULTATION REFERRING PHYSICIAN: Anabel Amaral MD CHIEF COMPLAINT: Abnormal head CT. HISTORY OF PRESENT ILLNESS: The patient is a very pleasant 86-year-old woman who apparently fell wearing house slippers on a smooth floor in [place] and was found to have a subdural hematoma. She apparently had daiana holes, and then due to increased bleeding, craniotomy. Treated at a different hospital, [facility] ([place], [place]). She was then discharged to inpatient rehabilitation. While in [facility] rehabilitation, the patient had 2 episodes of fairly straightforward syncope. She was admitted to [facility] for evaluation of syncope. In the course of the evaluation, she had bilateral pulmonary emboli thought to be causing the syncope. The echocardiogram showed an ejection fraction of 65%. Carotid Doppler on the patient showed mild atherosclerotic disease without significant obstruction. She had a head CT yesterday and showed age-related changes, postoperative changes from the left-sided craniotomy, a small residual heterogeneous subdural hematoma with little areas of what appears to be pneumocephalus. There is no hypodensity consistent with edema and postoperative changes. The patient continues to have cognitive problems and aphasia from the intracranial bleed and surgery. PAST MEDICAL HISTORY: See Dr. Babita Leo. SOCIAL HISTORY: See Dr. Babita Leo. MEDICATIONS: See Dr. Babita Leo. ALLERGIES: See Dr. Babita Leo. PHYSICAL EXAMINATION: VITAL SIGNS: Blood pressure 116/72, temperature 36.8, heart rate 80s. GENERAL: Patient was awake and alert. NEUROLOGIC: She has expressive greater than comprehensive aphasia. Face is symmetric. She has some mild weakness on the right side. No seizure activity. IMPRESSION/PLAN: 1. Status post fall with subdural hematoma. 2. Status post neurosurgical procedures for subdural hematoma. The patient's head CT is consistent with postoperative changes with postoperative edema. Her mental status is congruent with the abnormal imaging, including language dysfunction. I counseled the patient it may take several months to recover to a new baseline. Neurosurgery saw the patient and had similar comments about the neurologic imaging. I have no further recommendations now. She will be medically treated for her multiple problems, including pulmonary embolism. Hopefully, she will qualify to go back to inpatient rehabilitation. seventy total minutes floor time reviewing history, imaging, and coordination of care, along with direct counseling. Thank you for this consultation. We will sign off and follow up as needed. Please do not hesitate to call if there are any questions or changes in neurologic status with this very pleasant patient. /[id number]/MODL MTDD
[2017-05-25] MEDS: ACETAMINOPHEN 325 MG TAB PO PRN (19:29)
[2017-05-26 04:25] LABS: PLATELET COUNT 217 10^3/uL (150-400)
[2017-05-26] MEDS: LEVOTHYROXINE 25 MCG TAB PO SCH (06:28)
[2017-05-26] MEDS: LISINOPRIL 5 MG TAB PO SCH (09:23)
[2017-05-26] MEDS: levETIRAcetam 500 MG TAB PO SCH ×2 (09:31→19:46)
[2017-05-26] MEDS: CHOLECALCIFEROL VIT D3 1,000 UNITS TAB PO SCH (09:33)
--- NOTE | 2017-05-26 10:48 | HOSPPROG ---
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 outpatient * HTN -DC HCTZ -continue low dose lisinopril * Recent subdural s/p Alex hole and craniotomy -head CT without new bleed - rescan only if neuro changes -continue Keppra * Cerebral edema -head CT reviewed with Dr. Moncada - neurology -this is most c/w post-op edema -expressive aphasia and emotional lability c/w change -anticipate up to 6 months for resolution Subjective: No complaints. Objective: Vital Signs Temp Pulse Resp BP Pulse Ox 36.5 C 82 20 110/83 H 98 05/26/17 07:49 05/26/17 07:49 05/26/17 07:49 05/26/17 09:23 05/26/17 07:49 Laboratory Results 05/26/17 03:50 05/25/17 05/26/17 05/27/17 05:59 05:59 05:59 Intake Total 1743 100 Output Total 450 Balance 1293 100 PT 14.3 SEC (12.0-15.0) 05/25/17 13:40 INR 1.09 (0.83-1.16) 05/25/17 13:40 case d/w Dr Moncada and Dr. Khan regarding Head CT and risk of anti-coag - Physical Exam Constitutional: no apparent distress, appears nourished, not in pain Cardiovascular: regular rate and rhythym, no murmur, rub, or gallop Respiratory: no respiratory distress, no rales or rhonchi, clear to auscultation Gastrointestinal: normoactive bowel sounds, soft, non-tender abdomen, no palpable masses Skin: no rashes or abrasions, no fluctuance, no induration Neurologic: AAOx3, weakness (right), other (expressive aphasia) Psychiatric: interacting appropriately, not anxious, not encephalopathic, thought process linear, other (cries easily) ICD10 Worksheet Patient Problems: Problems Problem Status Onset Syncope Acute S/P craniotomy Acute SDH (subdural hematoma) Acute
[2017-05-26] MEDS: ACETAMINOPHEN 325 MG TAB PO PRN ×2 (11:44→19:11)
[2017-05-26] MEDS: WARFARIN SODIUM 5 MG TAB PO SCH (15:30)
[2017-05-26] MEDS: HEPARIN/DEXTROSE 500 ML IV SCH (15:33)
--- NOTE | 2017-05-26 15:43 | ASMTCMCOM ---
CM Note CM Note Notes: Pts case discussed in morning rounds. Pt will most likely be here until Monday AM the earliest. Pt is currently on IV heparin. CM spoke w/ Priya Mccall at inpatient rehab. Priya will touch base on Monday for an update. Therapies are recommending inpatient rehab. CM to follow. Plan: Inpatient rehab Date Signed: 05/26/2017 03:42 PM Electronically Signed By:BRAD Mendez
[2017-05-27] MEDS: ACETAMINOPHEN 325 MG TAB PO PRN ×3 (01:06→19:51)
[2017-05-27 04:35] LABS: INR 1.16 (0.83-1.16); PLATELET COUNT 220 10^3/uL (150-400)
[2017-05-27] MEDS: LEVOTHYROXINE 25 MCG TAB PO SCH (06:28)
[2017-05-27] MEDS: LISINOPRIL 5 MG TAB PO SCH (08:51)
[2017-05-27] MEDS: CHOLECALCIFEROL VIT D3 1,000 UNITS TAB PO SCH (08:51)
[2017-05-27] MEDS: levETIRAcetam 500 MG TAB PO SCH ×2 (08:52→19:52)
[2017-05-27] MEDS ORDERED: LISINOPRIL 5 MG TAB PO ONE (09:02)
--- NOTE | 2017-05-27 13:48 | HOSPPROG ---
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 outpatient * HTN -increase lisinopril * Recent subdural s/p [place] hole and craniotomy -head CT without new bleed - rescan only if neuro changes -continue Keppra * Cerebral edema -head CT reviewed with Dr. Moncada - neurology -this is most c/w post-op edema -expressive aphasia improving -anticipate up to 6 months for resolution Subjective: No complaints, aphasia getting better Objective: Vital Signs Temp Pulse Resp BP Pulse Ox 36.8 C 88 17 134/76 H 92 05/27/17 11:16 05/27/17 12:50 05/27/17 11:16 05/27/17 12:52 05/27/17 11:16 Laboratory Results 05/27/17 04:10 05/27/17 04:10 05/26/17 05/27/17 05/28/17 05:59 05:59 05:59 Intake Total 1743 1040 500 Output Total 450 375 350 Balance 1293 665 150 PT 15.0 SEC (12.0-15.0) 05/27/17 04:10 INR 1.16 (0.83-1.16) 05/27/17 04:10 - Physical Exam Constitutional: no apparent distress, appears nourished, not in pain Cardiovascular: regular rate and rhythym, no murmur, rub, or gallop Respiratory: no respiratory distress, no rales or rhonchi, clear to auscultation Gastrointestinal: normoactive bowel sounds, soft, non-tender abdomen, no palpable masses Skin: no rashes or abrasions, no fluctuance, no induration Neurologic: AAOx3, sensation intact bilaterally Psychiatric: interacting appropriately, not anxious, not encephalopathic, thought process linear ICD10 Worksheet Patient Problems: Problems Problem Status Onset Syncope Acute S/P craniotomy Acute SDH (subdural hematoma) Acute
[2017-05-27] MEDS: WARFARIN SODIUM 5 MG TAB PO SCH (15:25)
[2017-05-27] MEDS ORDERED: MAGNESIUM HYDROXIDE 30 ML UDCUP PO PRN (16:11)
[2017-05-27] MEDS ORDERED: POLYETHYLENE GLYCOL 3350 17 GM PKT PO PRN (16:11)
[2017-05-27] MEDS ORDERED: LACTULOSE 20 GM/30 ML UDCUP PO PRN (16:11)
[2017-05-27] MEDS ORDERED: BISACODYL 10 MG SUPP PR PRN (16:11)
[2017-05-27] MEDS: HEPARIN/DEXTROSE 500 ML IV SCH (16:35)
[2017-05-27] MEDS: SENNOSIDES/DOCUSATE SODIUM TAB PO SCH (20:37)
[2017-05-28 04:20] LABS: INR 1.51 (0.83-1.16); PROTIME(PATIENT) 18.4 SEC (12.0-15.0)
[2017-05-28] MEDS: LEVOTHYROXINE 25 MCG TAB PO SCH (06:35)
[2017-05-28] MEDS: LISINOPRIL 5 MG TAB PO SCH (08:47)
[2017-05-28] MEDS: CHOLECALCIFEROL VIT D3 1,000 UNITS TAB PO SCH (08:47)
[2017-05-28] MEDS: levETIRAcetam 500 MG TAB PO SCH ×2 (08:47→20:46)
[2017-05-28] MEDS: SENNOSIDES/DOCUSATE SODIUM TAB PO SCH ×2 (08:48→19:31)
[2017-05-28] MEDS: ACETAMINOPHEN 325 MG TAB PO PRN ×2 (10:25→20:46)
--- NOTE | 2017-05-28 13:25 | HOSPPROG ---
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 outpatient -transcranial doppler to assess flow in basilar artery unavailable here -Dr. Moncada recommends referral to outpatient specialist in [place] * HTN -increase lisinopril * Recent subdural s/p [place] hole and craniotomy -head CT without new bleed - rescan only if neuro changes -continue Keppra -daughter to clarify with NSub neurosurgery when tien to be removed * Cerebral edema -head CT reviewed with Dr. Moncada - neurology -this is most c/w post-op edema -expressive aphasia improving -anticipate up to 6 months for resolution Subjective: Doing great, some neck spasms, minimal headache Objective: Vital Signs Temp Pulse Resp BP Pulse Ox 36.9 C 84 22 H 131/70 H 90 L 05/28/17 11:18 05/28/17 11:18 05/28/17 11:18 05/28/17 11:44 05/28/17 11:18 Laboratory Results 05/27/17 04:10 05/27/17 04:10 05/27/17 05/28/17 05/29/17 05:59 05:59 05:59 Intake Total 1040 1886 Output Total 375 850 Balance 665 1036 PT 18.4 SEC (12.0-15.0) H 05/28/17 03:51 INR 1.51 (0.83-1.16) H 05/28/17 03:51 - Physical Exam Constitutional: no apparent distress, appears nourished, not in pain Cardiovascular: regular rate and rhythym, no murmur, rub, or gallop Respiratory: no respiratory distress, no rales or rhonchi, clear to auscultation Gastrointestinal: normoactive bowel sounds, soft, non-tender abdomen, no palpable masses Skin: no rashes or abrasions, no fluctuance, no induration Neurologic: AAOx3, sensation intact bilaterally Psychiatric: interacting appropriately, not anxious, not encephalopathic, thought process linear ICD10 Worksheet Patient Problems: Problems Problem Status Onset Syncope Acute S/P craniotomy Acute SDH (subdural hematoma) Acute
--- NOTE | 2017-05-28 13:39 | ASMTCMCOM ---
CM Note CM Note Notes: 05/28/2017 Case Management Note Met w/pt during rounds. Pt to be evaluated by Priya at inpatient rehab on Monday morning. Case Management d/c poc: to inpatient rehab pending outcome of Priya's assessment. Case Management to follow. Date Signed: 05/28/2017 01:39 PM Electronically Signed By:Iman Garcia RN
[2017-05-28] MEDS: HEPARIN/DEXTROSE 500 ML IV SCH (15:18)
[2017-05-28] MEDS ORDERED: WARFARIN SODIUM 2.5 MG TAB PO ONE (16:00)
[2017-05-29] MEDS: LEVOTHYROXINE 25 MCG TAB PO SCH (05:08)
[2017-05-29 05:26] LABS: INR 1.77 (0.83-1.16); PROTIME(PATIENT) 20.7 SEC (12.0-15.0)
[2017-05-29] MEDS: levETIRAcetam 500 MG TAB PO SCH ×2 (09:11→20:35)
[2017-05-29] MEDS: LISINOPRIL 5 MG TAB PO SCH (09:11)
[2017-05-29] MEDS: CHOLECALCIFEROL VIT D3 1,000 UNITS TAB PO SCH (09:12)
[2017-05-29] MEDS: SENNOSIDES/DOCUSATE SODIUM TAB PO SCH ×2 (09:12→21:16)
--- NOTE | 2017-05-29 11:46 | ASMTCMCOM ---
CM Note CM Note Notes: 05/29/2017 Case Management Note Discussed pt during rounds. Anticipating d/c tomorrow per MD. Notified Yanet Lerner at inpatient rehab (ext [phone]). Inpatient rehab has accepted pt and plans for pt to return tomorrow. Case Management d/c poc: To Inpatient Rehab when medically stable. Case Management to follow. Date Signed: 05/29/2017 11:45 AM Electronically Signed By:Iman Garcia RN
[2017-05-29] MEDS ORDERED: WARFARIN SODIUM 2.5 MG TAB PO SCH (16:00)
--- NOTE | 2017-05-29 16:33 | HOSPPROG ---
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 Moncada - neurology -this is most c/w post-op edema -expressive aphasia improving -anticipate up to 6 months for resolution Subjective: case d/w dr lora Objective: Vital Signs Temp Pulse Resp BP Pulse Ox 36.7 C 82 18 120/83 H 99 05/29/17 15:16 05/29/17 15:16 05/29/17 15:16 05/29/17 15:16 05/29/17 15:16 Laboratory Results 05/27/17 04:10 05/27/17 04:10 05/28/17 05/29/17 05/30/17 05:59 05:59 05:59 Intake Total 1886 1436 Output Total 850 1150 450 Balance 1036 286 -450 PT 20.7 SEC (12.0-15.0) H 05/29/17 05:00 INR 1.77 (0.83-1.16) H 05/29/17 05:00 - Physical Exam Constitutional: no apparent distress, appears nourished Eyes: PERRL, anicteric sclera Ears, Nose, Mouth, Throat: moist mucous membranes, hearing normal Cardiovascular: regular rate and rhythym, no murmur, rub, or gallop Respiratory: no respiratory distress, no rales or rhonchi Gastrointestinal: normoactive bowel sounds, soft, non-tender abdomen Genitourinary: no bladder fullness, No wetzel in urethra Skin: warm Musculoskeletal: full muscle strength Neurologic: AAOx3 ICD10 Worksheet Patient Problems: Problems Problem Status Onset Syncope Acute S/P craniotomy Acute SDH (subdural hematoma) Acute
[2017-05-29] MEDS: HEPARIN/DEXTROSE 500 ML IV SCH (17:57)
[2017-05-29] MEDS: ACETAMINOPHEN 325 MG TAB PO PRN (20:35)
[2017-05-30 05:08] LABS: INR 1.65 (0.83-1.16); PROTIME(PATIENT) 19.6 SEC (12.0-15.0)
[2017-05-30] MEDS: LEVOTHYROXINE 25 MCG TAB PO SCH (06:47)
[2017-05-30 07:17] VITALS: RESP 16
[2017-05-30] MEDS: SENNOSIDES/DOCUSATE SODIUM TAB PO SCH (07:55)
[2017-05-30] MEDS: levETIRAcetam 500 MG TAB PO SCH (08:40)
[2017-05-30] MEDS: LISINOPRIL 5 MG TAB PO SCH (08:40)
[2017-05-30] MEDS: CHOLECALCIFEROL VIT D3 1,000 UNITS TAB PO SCH (08:40)
[2017-05-30 12:38] VITALS: BP 126/67; PULSE 89; TEMP 98.1; O2SAT 89
--- NOTE | 2017-05-30 13:33 | PDIAF ---
- Diagnosis Diagnosis: acute PE Code Status: Full Code - Medication Management Discharge Medications: Medications to Continue on Transfer Albuterol [Ventolin Hfa Inhaler] 2 puffs IH Q6HRS PRN 05/23/17 [Last Taken Unknown] Cholecalciferol Vit D3 [Vitamin D3 (*)] 1,000 units PO DAILY 05/23/17 [Last Taken Unknown] Levothyroxine [Synthroid 25 mcg (*)] 25 mcg PO DAILY06 05/23/17 [Last Taken ] levETIRAcetam [Keppra] 750 mg PO BID 05/23/17 [Last Taken 05/23/17] Acetaminophen [Tylenol 325mg (*)] 650 mg PO Q6 PRN 05/24/17 [Last Taken 05/23/17 ] Enoxaparin [Lovenox 60 MG (*)] 50 mg SQ Q12H #2 syr 05/30/17 [Last Taken Unknown ] Lisinopril [Zestril 5 mg (*)] 10 mg PO DAILY tab 05/30/17 [Last Taken Unknown] Polyethylene Glycol 3350 [Miralax 17 gm (*)] 17 gm PO DAILY PRN pkt 05/30/17 [ Last Taken Unknown] Sennosides/Docusate Sodium [Senokot-S] 1 - 2 tab PO BID tab 05/30/17 [Last Taken Unknown] Warfarin Sodium [Coumadin 2.5MG (*)] 2.5 mg PO DAILY16 tab 05/30/17 [Last Taken Unknown] Discharge Medications: Refer to the Discharge Home Medication list for PRN reason. - Orders Services needed: Registered Nurse, Certified Garage Worker, Physical Therapy, Occupational Therapy, Speech Language Pathologist - Follow Up Care Current Providers and Referrals: Patient,NotPresent [Primary Care Provider] - As per Instructions
--- NOTE | 2017-05-30 13:33 | HOSPPROG ---
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 Moncada - neurology -this is most c/w post-op edema -expressive aphasia improving -anticipate up to 6 months for resolution dc to acute rehab today > 30 minutes on dc Subjective: case d/w dr avery. ready for transfer to rehab Objective: Vital Signs Temp Pulse Resp BP Pulse Ox 36.7 C 89 16 126/67 H 89 L 05/30/17 12:00 05/30/17 12:00 05/30/17 12:00 05/30/17 12:00 05/30/17 12:00 Laboratory Results 05/30/17 04:32 05/27/17 04:10 05/29/17 05/30/17 05/31/17 05:59 05:59 05:59 Intake Total 1436 520 Output Total 1150 650 Balance 286 -130 PT 19.6 SEC (12.0-15.0) H 05/30/17 04:32 INR 1.65 (0.83-1.16) H 05/30/17 04:32 - Physical Exam Constitutional: no apparent distress, appears nourished Eyes: PERRL, anicteric sclera Ears, Nose, Mouth, Throat: moist mucous membranes, hearing normal Cardiovascular: regular rate and rhythym, no murmur, rub, or gallop Respiratory: no respiratory distress, no rales or rhonchi Gastrointestinal: normoactive bowel sounds, soft, non-tender abdomen Genitourinary: no bladder fullness, No wetzel in urethra Skin: warm, normal color Neurologic: AAOx3, sensation intact bilaterally Psychiatric: interacting appropriately ICD10 Worksheet Patient Problems: Problems Problem Status Onset Syncope Acute S/P craniotomy Acute SDH (subdural hematoma) Acute
== END 2017-05-30 13:56 | DRG 175 ==
LOC: EDUNIT# → F2W 13:02 → OBSVTOIN 05-25 09:27
PROVIDERS: ADMIT Internal Medicine; ATTEND Internal Medicine
DX: I26.99 Other pulmonary embolism without acute cor pulmonale (principal); G93.6 Cerebral edema; R47.01 Aphasia; G45.8 Other transient cerebral ischemic attacks and related syndromes; S06.5X9D Traumatic subdural hemorrhage with loss of consciousness of unspecified duration, subsequent encounter; E03.9 Hypothyroidism, unspecified; I10 Essential (primary) hypertension; Z96.641 Presence of right artificial hip joint
CPT/HCPCS: 85520-90; 92507-GN; 92523-GN; 97110-GP; 97112-GO; 97116-GP; 97161-GP; 97166-GO; 97530-GO; 97530-GP; 97535-GO; G0378; G0515-GO; G8978-GP-CK; G8979-GP-CJ; G8987-GO-CK; G8988-GO-CI; G9159-GN-CJ; G9160-GN-CH; J1644; J2405; Q9967

== ENCOUNTER 2017-05-26 16:10 | Inpatient (IN) | payer OTHER, MEDICARE ==
[2017-05-30] MEDS ORDERED: ENOXAPARIN 60 MG/0.6 ML SYR SC SCH ×2 (04:30→15:00)
[2017-05-30] MEDS ORDERED: NON-FORMULARY NEW DRUG (Albuterol 2 PUFFS) IH PRN (14:59)
[2017-05-30] MEDS ORDERED: ALBUTEROL 200 PUFFS/18 GM MDI IH PRN (15:06)
[2017-05-30] MEDS ORDERED: ENOXAPARIN 60 MG/0.6 ML SYR SC ONE ×2 (15:15→16:00)
[2017-05-30] MEDS ORDERED: WARFARIN SODIUM 2.5 MG TAB PO SCH ×2 (16:00)
[2017-05-30] MEDS: POLYETHYLENE GLYCOL 3350 17 GM PKT PO PRN (16:16)
--- NOTE | 2017-05-30 16:30 | GHP ---
[f rep st] HISTORY AND PHYSICAL POST ADMISSION PHYSICIAN EVALUATION AND REHABILITATION TREATMENT PLAN DATE OF ADMISSION: 05/30/2017 DATE OF EVALUATION: 05/30/2017. TIME OF EVALUATION: 1430. REFERRING FACILITY: [facility]. REFERRING PHYSICIAN: Dr. Mcneal IMPAIRMENT GROUP: 2.22. DATE OF ONSET: 05/15/2017. REHABILITATION DIAGNOSIS: Debility following subdural hematoma and craniotomy for evacuation. CONSULTING PHYSICIANS: She was seen in consultation by neurology, Dr. Moncada, and neurosurgery, Dr. Hawkins. ETIOLOGIC DIAGNOSIS: Traumatic, closed injury. DATE OF SURGERY: 05/15/2017. HISTORY OF PRESENT ILLNESS: This patient has a history of a subdural hematoma following a fall that she suffered while on vacation in [place]. She was initially treated with daiana hole drainage on 05/04/2017 and then returned to the hospital on 05/15/2017 at [facility] with recurrent symptoms. She underwent a left frontal craniotomy and evacuation of an acute on chronic subdural hematoma. She came to inpatient rehabilitation on 05/23/2017, but on 05/24/2017 she had a syncopal fall with loss of consciousness. She was transferred to [facility]. There, she was diagnosed with a pulmonary embolus as well as tight stenosis of the left subclavian artery consistent with a possible subclavian steal syndrome. Cerebral angiography, however, showed patent [place] of [place] and large blood flow, so she was likely able to perfuse her brain and her left upper extremity via retrograde flow in the vertebral artery. Possible stenting of the subclavian was discussed with Interventional Radiology and it was concluded that this would be a complicated procedure also requiring simultaneous carotid stenting, that this would be high risk for the patient and that she would also need to be on clopidogrel as well as anticoagulation, which would place her at increased risk of a recurrent subdural hemorrhage. Therefore, procedure was not performed and she was returned to inpatient rehabilitation. It was advised that she have an outpatient transcranial Doppler study to further evaluate blood flow to the brain and to the left upper extremity and determine whether or not there was an indication based on that study for the procedure. Additionally, if she is to have recurrent syncopal or presyncopal symptoms while inpatient rehabilitation, then would consider proceeding with the procedure. She was placed on a heparin drip and begun on warfarin. She was medically stable and appropriate to return to inpatient rehabilitation. STUDIES AND LABS DURING HER HOSPITALIZATION: Chest, thoracic and neck CT angiogram showed atherosclerotic aorta and coronary atherosclerosis without aneurysm or cardiomegaly and multiple positive pulmonary thromboemboli throughout both lungs, moderate in volume. She also was noted to have a few subcentimeter pulmonary nodules and repeat chest CT was recommended in [address] angiography showed severe critical atherosclerotic stenosis of the origin of the left subclavian artery and reversal of the left vertebral flow consistent with left subclavian steal. Additionally, she had mild atherosclerotic disease in her bilateral carotid bulbs, moderate atherosclerotic disease involving the origin of the left common carotid artery and right brachiocephalic artery. Echocardiogram was done which showed normal global LV systolic function, an ejection fraction at 65%, no regional wall motion abnormalities, mild to moderately dilated right ventricle, mild to moderately reduced right ventricular function, flattened interventricular septum consistent with right ventricular pressure and/or volume overload, mildly dilated right atrium, mild mitral valve regurgitation, mild tricuspid regurgitation, and normal pulmonary artery pressure. Hematology showed mild anemia. On 05/27/2017, her hemoglobin was 10.4, hematocrit was 31.9. Otherwise , CBC was within normal limits. Most recent INR this morning was 1.65. Serum chemistry on 05/27/2017 revealed normal renal function and electrolytes. Serial troponins were taken. On 05/25/2017, troponin was high at 0.174 with the upper limit of normal being 0.034. It came down on serial testing than the same day and the next day, and on 05/26/2017 troponin was 0.099. Liver function tests revealed a slightly low albumin. TSH was normal at 1.82. Prolactin was slightly elevated at 19.6. Urinalysis was completely normal. Head CT showed [id number] age-related atrophy, postop changes from the left craniotomy, and nonspecific hypodensities in the white matter of bilateral cerebral hemispheres. PRECAUTIONS: She is a fall risk. She has seizure precautions. ACTIVE COMORBIDITIES: She has no active tier 1, tier 2, or tier 3 comorbidities. PAST MEDICAL HISTORY: 1. 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 2. Hypertension. 3. Hypothyroidism. 4. Falls. 5. Subdural hematoma. PAST SURGICAL HISTORY: 1. Right hip replacement. 2. Daiana hole treatment of subdural hematoma. 3. Craniotomy and evacuation of subdural hematoma. PRE-HOSPITAL MEDICATIONS: 1. Lisinopril/hydrochlorothiazide 10/12.5 one-half tablet p.o. daily. 2. Levothyroxine 25 mcg p.o. daily. 3. Ergocalciferol daily. ADMISSION MEDICATIONS: 1. Acetaminophen 650 mg p.o. q.6 hours p.r.n. 2. Albuterol 2 puffs q.6 hours p.r.n. 3. Cholecalciferol 1000 units p.o. daily. 4. Enoxaparin 50 mg subcutaneous q.12 hours. 5. Levetiracetam 750 mg p.o. b.i.d. 6. Levothyroxine 25 mcg p.o. q. day. 7. Lisinopril 10 mg p.o. q. day. 8. Polyethylene glycol 17 g p.o. q. day p.r.n. 9. Senna/docusate 1 to 2 tablets p.o. b.i.d. 10. Warfarin 2.5 mg p.o. daily at 1600. ALLERGIES: There are no known drug allergies. SOCIAL HISTORY: She lives with her daughter in [place], [place]. There are several steps to enter, but no steps once she is in the house. She has a history of cigarette smoking, but quit about 10 years ago. She uses occasional alcohol. 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 FAMILY HISTORY: Noncontributory. REVIEW OF SYSTEMS: She is not in pain. She reports that she gets shortness of breath with activity. She has no cough. She has no chest pain or palpitations. She denies nausea, vomiting, constipation, or diarrhea. She denies dysuria or urinary frequency. She denies joint pain or joint swelling. She is sleeping well. She denies fevers or chills. Otherwise, a 10-point review of systems is negative. PHYSICAL EXAM: VITAL SIGNS: Blood pressure is 125/74, heart rate is 87, respiratory rate is 18, oxygen saturation is 98% on 2 L. Temperature is 36.5 degrees centigrade. Her weight is 52 kg. GENERAL: This is a well-nourished, well-developed woman, appears her chronologic age, cooperative and in no acute distress. HEENT: Extraocular movements are intact. Pupils are equal, round, and reactive to light. Mucous membranes are moist. She has upper and lower dentures. There are no oropharyngeal mucosal lesions noted. NECK: Supple. HEART: There is a regular rate and rhythm with no murmurs, rubs, or gallops. LUNGS: Clear to auscultation bilaterally. ABDOMEN: Soft, nontender, nondistended with normoactive bowel sounds and no hepatosplenomegaly. EXTREMITIES: There is no cyanosis, clubbing, or edema. NEUROLOGIC: She is alert and oriented x3. Cranial nerves 2-12 are grossly intact. There is no focal weakness. Sensation is intact to light touch. Deep tendon reflexes are 2 + bilaterally at the biceps tendons and hypoactive bilaterally at the patella and Achilles tendons. SKIN: There is a well-approximated surgical scar in the left frontal and parietal region with tien present. There is no purulence, erythema, or drainage. CURRENT LEVEL OF FUNCTION PER THE PREADMISSION SCREEN: Regarding diet, feeding , and swallowing, she was on a regular textured diet with thin liquids and required setup. For grooming, she required standby assist and verbal cues. Bathing needed assistance. Dressing the upper body and lower body needed minimal assistance. Toileting was done with contact guard to standby assist. For bed mobility, she needed assistance. Transfers were done with contact guard assist. She used a front-wheeled walker. Endurance was poor. She ambulated 40 feet with minimal assistance. Regarding communication, she was noted to have mild to moderate expressive aphasia. Regarding cognition, she was noted to have a decrease in judgment, problem solving, and auditory comprehension. There are no changes from the preadmission screen on today's exam. IMPRESSION: This is an 86-year-old woman who had acute on chronic subdural hematomas and has had a craniotomy and excision on 05/15/2017. She came to rehabilitation on 05/23/2017, but the following morning had an episode of syncope in which she lost consciousness and was lowered to the ground by nurses. She was sent to [facility], where evaluation revealed multiple bilateral pulmonary emboli as well as subclavian steal syndrome. She was treated with IV heparin and begun on warfarin for the pulmonary emboli after consultation with Neurosurgery to ensure that it was safe to anticoagulate her following her craniotomy for the subdural hematoma. Warfarin was chosen because it is reversible. She had an incidental finding of subclavian steal syndrome. It is unclear whether this contributed to her syncopal episode or whether it may have contributed to her falls, which caused the subdural hematoma originally. She was stabilized in the hospital and is appropriate for inpatient rehabilitation. Her goal is to complete a rehabilitation stay and then return home with her daughter and home health services. For a safe discharge, she will need to achieve supervision to modified independence with mobility, ADLs, speech, and feeding. She will need to be medically stable with medications and with medication education for the patient and family and neurologic education for the patient and family. She will have therapy with physical therapy, occupational therapy, and speech and language pathology for 60 minutes per day per discipline on 5 to 7 days of the week. Her expected duration of stay is 12 to 14 days. It is anticipated that upon discharge she will continue to benefit from home health services including speech and language pathology, occupational therapy, and physical therapy. She will also benefit from a brain injury support group. PLAN: 1. Debility following craniotomy and evacuation of subdural hematoma on 2017, with initial rehabilitation stay complicated by syncopal episode and diagnosis of pulmonary emboli as well as subclavian steal syndrome. PT and OT to optimize mobility and activities of daily living toward return to home at the supervision to modified independent level. 2. 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 Assessment and treatment per Speech and Language Pathology. 3. Multiple bilateral pulmonary emboli, status post IV heparin in the hospital. Continue enoxaparin at b.i.d. treatment dose. Continue warfarin. We will discontinue enoxaparin when she has been therapeutic on warfarin x2 days. 4. Hypertension. Continue lisinopril. Monitor blood pressures. 5. Seizure prophylaxis, status post subdural hematoma. Discussed with neurosurgeon Dr. Angel. Discontinue levetiracetam. 6. Hypothyroidism. Continue levothyroxine. 7. Anemia. Repeat CBC in the morning along with INR. 8. Therapeutic anticoagulation to be managed by Pharmacy. 9. Pulmonary nodules seen on CT scanning in the hospital. Repeat chest CT in 6 months. FOLLOWUP: Follow up with Dr. Angel after discharge from rehabilitation. Tien can be removed today. /[id number]/MODL MTDD
[2017-05-30] MEDS: SENNOSIDES/DOCUSATE SODIUM TAB PO SCH (20:15)
[2017-05-30] MEDS ORDERED: levETIRAcetam 250 MG TAB PO SCH (21:00)
[2017-05-30] MEDS ORDERED: levETIRAcetam 500 MG TAB PO SCH (21:00)
[2017-05-30] MEDS ORDERED: NON-FORMULARY NEW DRUG (Levetiracetam [Keppra] 750 MG) PO SCH (21:00)
[2017-05-31] MEDS: LEVOTHYROXINE 25 MCG TAB PO SCH (06:00)
[2017-05-31] MEDS: ENOXAPARIN 60 MG/0.6 ML SYR SC SCH ×2 (06:04→16:34)
[2017-05-31] MEDS: CHOLECALCIFEROL VIT D3 1,000 UNITS TAB PO SCH (07:50)
[2017-05-31] MEDS: LISINOPRIL 5 MG TAB PO SCH (07:51)
[2017-05-31] MEDS: SENNOSIDES/DOCUSATE SODIUM TAB PO SCH ×2 (07:57→21:10)
--- NOTE | 2017-05-31 09:03 | PDOREHIP ---
Admission [facility] - Admission - 3 Day Assessment Period Admission Date/Day 1: 05/30/17 Day 2: 05/31/17 Day 3: 06/01/17 - Active Diagnoses Comorbidities and Co-existing Conditions at Admission: 57261. None of the Above - Skin Conditions Unhealed Pressure Ulcer (1 or more/Stage 1 or >)-Admission: 0. No
--- NOTE | 2017-05-31 09:04 | SOAPPROG ---
SOAP Progress Note Assessment/Plan: Assessment: 86 yo woman with debility following craniotomy and evacuation of subdural hematoma on 05/15/2017, with initial rehabilitation stay complicated by syncopal episode 05/23/2017 with rehospitalization and diagnosis of pulmonary emboli as well as subclavian steal syndrome. * Debility. * PT and OT to optimize mobility and activities of daily living toward return to home at the supervision to modified independent level. 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 Assessment and treatment per Speech and Language Pathology. * Multiple bilateral pulmonary emboli, status post IV heparin in the hospital. * Continue warfarin, managed by pharmacy. * Continue enoxaparin at b.i.d. treatment dose. Discontinue enoxaparin when she has been therapeutic on warfarin x2 days. * Continue O2 as needed. Has had nocturnal hypoxemia. * Hypertension. Continue lisinopril. Monitor blood pressures. * Seizure prophylaxis, status post subdural hematoma. Discussed with neurosurgeon Dr. Angel, 05/30/2017. Discontinue levetiracetam. * Hypothyroidism. Continue levothyroxine. * Anemia. Improving on CBC 2 11/20/2017. * Pulmonary nodules seen on CT scanning in the hospital. Repeat chest CT in 6 months. FOLLOWUP: Follow up with Dr. Angel after discharge from rehabilitation. [place] removed 05/31/2017. 05/31/17 11:54 Subjective: No complaints. Not in pain, no cough or dyspnea, no fevers or chills. Slept well. Objective: Vital Signs Temp Pulse Resp BP Pulse Ox 36.8 C 70 15 151/91 H 97 05/31/17 06:16 05/31/17 06:16 05/31/17 06:16 05/31/17 07:51 05/31/17 06:16 05/30/17 05/31/17 06/01/17 05:59 05:59 05:59 Intake Total 310 Output Total 250 200 Balance 60 -200 Physical Exam - Physical Exam General Appearance: WD/WN, alert, no apparent distress Respiratory: normal breath sounds, No crackles, No rhonchi, No wheezing Cardiac/Chest: regular rate, rhythm, No edema, No JVD, No diastolic murmur, No systolic murmur Skin: normal color, warm/dry, other (Scalp incision with tien discontinued, no erythema, purulence or dehiscence.) Neuro/Psych: alert, normal mood/affect, oriented x 3 ICD10 Worksheet Patient Problems: Problems Problem Status Onset S/P craniotomy Acute SDH (subdural hematoma) Acute Syncope Acute
[2017-05-31 09:12] LABS: PLATELET COUNT 279 10^3/uL (150-400)
[2017-05-31 09:27] LABS: INR 1.46 (0.83-1.16); PROTIME(PATIENT) 17.9 SEC (12.0-15.0)
[2017-05-31] MEDS ORDERED: WARFARIN SODIUM 5 MG TAB PO ONE (16:00)
[2017-05-31] MEDS ORDERED: WARFARIN SODIUM 2.5 MG TAB PO ONE (16:00)
[2017-06-01] MEDS: LEVOTHYROXINE 25 MCG TAB PO SCH (05:47)
[2017-06-01] MEDS: ENOXAPARIN 60 MG/0.6 ML SYR SC SCH ×2 (05:47→18:16)
[2017-06-01 08:29] LABS: INR 1.46 (0.83-1.16); PROTIME(PATIENT) 17.9 SEC (12.0-15.0)
[2017-06-01] MEDS: SENNOSIDES/DOCUSATE SODIUM TAB PO SCH (08:46)
[2017-06-01] MEDS: LISINOPRIL 5 MG TAB PO SCH (08:47)
[2017-06-01] MEDS: CHOLECALCIFEROL VIT D3 1,000 UNITS TAB PO SCH (08:52)
[2017-06-01] MEDS: ACETAMINOPHEN 325 MG TAB PO PRN ×2 (13:28→20:45)
--- NOTE | 2017-06-01 13:46 | SOAPPROG ---
SOAP Progress Note Assessment/Plan: Assessment: 86 yo woman with debility following craniotomy and evacuation of subdural hematoma on 05/15/2017, with initial rehabilitation stay complicated by syncopal episode 05/23/2017 with rehospitalization and diagnosis of pulmonary emboli as well as subclavian steal syndrome. * Debility. * PT and OT to optimize mobility and activities of daily living toward return to home at the supervision to modified independent level. 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 Assessment and treatment per Speech and Language Pathology. * Advised that she discuss difficulty playing solitaire with speech therapist. * Multiple bilateral pulmonary emboli, status post IV heparin in the hospital. * Continue warfarin, managed by pharmacy. * Continue enoxaparin at b.i.d. treatment dose. Discontinue enoxaparin when she has been therapeutic on warfarin x2 days. * Continue O2 as needed. Has had nocturnal hypoxemia. * Hypertension. Continue lisinopril. Monitor blood pressures. * Seizure prophylaxis, status post subdural hematoma. Discussed with neurosurgeon Dr. Angel, 05/30/2017. Discontinue levetiracetam. * Continue seizure precautions. * Hypothyroidism. Continue levothyroxine. * Anemia. Improving on CBC 2 05/31/2017. * Pulmonary nodules seen on CT scanning in the hospital. Repeat chest CT in 6 months. FOLLOWUP: Follow up with Dr. Angel after discharge from rehabilitation. [place] removed 05/31/2017. 06/01/17 13:44 Subjective: No complaints. Sleeping well. Not in pain. No episodes of lightheadedness. She reports that she is frustrated that she can no longer wean at solitaire on her tablet. Objective: Vital Signs Temp Pulse Resp BP Pulse Ox 36.6 C 87 17 123/68 H 94 06/01/17 06:02 06/01/17 06:02 06/01/17 06:02 06/01/17 08:47 06/01/17 06:02 Laboratory Results 05/31/17 06:00 05/31/17 06/01/17 06/02/17 05:59 05:59 05:59 Intake Total 925 386 8504 Output Total 250 800 Balance 60 50 1105 PT 17.9 SEC (12.0-15.0) H 06/01/17 06:30 INR 1.46 (0.83-1.16) H 06/01/17 06:30 Physical Exam - Physical Exam General Appearance: WD/WN, alert, no apparent distress Respiratory: No respiratory distress, No accessory muscle use Skin: normal color, warm/dry, other (Scalp incision C/D/I) Neuro/Psych: no motor/sensory deficits, alert, normal mood/affect, oriented x 3 ICD10 Worksheet Patient Problems: Problems Problem Status Onset S/P craniotomy Acute SDH (subdural hematoma) Acute Syncope Acute
[2017-06-01] MEDS ORDERED: WARFARIN SODIUM 5 MG TAB PO ONE (16:00)
[2017-06-02] MEDS ORDERED: CALCIUM CARBONATE 500 MG CHEWABLE TAB PO ONE (02:39)
[2017-06-02] MEDS: SENNOSIDES/DOCUSATE SODIUM TAB PO SCH ×2 (02:44→07:59)
[2017-06-02] MEDS: LEVOTHYROXINE 25 MCG TAB PO SCH (06:24)
[2017-06-02] MEDS: ENOXAPARIN 60 MG/0.6 ML SYR SC SCH ×2 (06:25→18:02)
[2017-06-02] MEDS: CHOLECALCIFEROL VIT D3 1,000 UNITS TAB PO SCH (07:59)
[2017-06-02] MEDS: LISINOPRIL 5 MG TAB PO SCH (07:59)
[2017-06-02] MEDS: POLYETHYLENE GLYCOL 3350 17 GM PKT PO PRN (08:04)
[2017-06-02 08:16] LABS: INR 1.65 (0.83-1.16); PROTIME(PATIENT) 19.6 SEC (12.0-15.0)
[2017-06-02] MEDS ORDERED: CALCIUM CARBONATE 500 MG CHEWABLE TAB PO PRN (14:22)
--- NOTE | 2017-06-02 14:22 | SOAPPROG ---
SOAP Progress Note Assessment/Plan: Assessment: 86 yo woman with debility following craniotomy and evacuation of subdural hematoma on 05/15/2017, with initial rehabilitation stay complicated by syncopal episode 05/23/2017 with rehospitalization and diagnosis of pulmonary emboli as well as subclavian steal syndrome. * Debility. * PT and OT to optimize mobility and activities of daily living toward return to home at the supervision to modified independent level. 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 PER TEAM MEETING TODAY, MOST LIKELY WILL NEED SOME SUPERVISION FOR DAILY ACTIVITIES FOLLOWING DISCHARGE DUE TO MILD COGNITIVE DEFICITS. * Multiple bilateral pulmonary emboli, status post IV heparin in the hospital. * Continue warfarin, managed by pharmacy. * Continue enoxaparin at b.i.d. treatment dose. Discontinue enoxaparin when she has been therapeutic on warfarin x2 days. * Continue O2 as needed. Has had nocturnal hypoxemia. * Hypertension. Continue lisinopril. Monitor blood pressures. * Seizure prophylaxis, status post subdural hematoma. Discussed with neurosurgeon Dr. Angel, 05/30/2017. Discontinue levetiracetam. * Continue seizure precautions. * Hypothyroidism. Continue levothyroxine. * bowel program-will change Senokot p.r.n., MiraLax to p.r.n. and p.r.n. Tums. * Anemia. Improving on CBC 2 05/31/2017. * Pulmonary nodules seen on CT scanning in the hospital. Repeat chest CT in 6 months. FOLLOWUP: Follow up with Dr. Angel after discharge from rehabilitation. [place] removed 05/31/2017. Plan: 06/02/17 14:20 Subjective: She does not have any new complaints. She does report occasional shortness of breath with exercise. She denies shortness of breath while seated in her room. Objective: Vital Signs Temp Pulse Resp BP Pulse Ox 36.9 C 88 14 140/84 H 93 06/02/17 06:30 06/02/17 07:59 06/02/17 06:30 06/02/17 07:59 06/02/17 06:30 Laboratory Results 05/31/17 06:00 06/01/17 06/02/17 06/03/17 05:59 05:59 05:59 Intake Total 850 1715 200 Output Total 800 725 850 Balance 50 990 -650 PT 19.6 SEC (12.0-15.0) H 06/02/17 06:30 INR 1.65 (0.83-1.16) H 06/02/17 06:30 Physical Exam - Physical Exam General Appearance: WD/WN, alert, no apparent distress Respiratory: chest non-tender, lungs clear Cardiac/Chest: regular rate, rhythm, No edema Abdomen: non-tender, soft Skin: normal color, warm/dry Neuro/Psych: alert, normal mood/affect, oriented x 3, motor weakness (Very mild upper lower extremity weakness has functional strength all 4 extremities), cognition abnormalities (Mild cognitive deficits per speech therapy) ICD10 Worksheet Patient Problems: Problems Problem Status Onset S/P craniotomy Acute SDH (subdural hematoma) Acute Syncope Acute
[2017-06-02] MEDS ORDERED: SENNOSIDES 1 TAB PO PRN (14:23)
[2017-06-02] MEDS: WARFARIN SODIUM 5 MG TAB PO SCH (15:26)
[2017-06-03] MEDS: LEVOTHYROXINE 25 MCG TAB PO SCH (06:33)
[2017-06-03] MEDS: ENOXAPARIN 60 MG/0.6 ML SYR SC SCH ×2 (06:33→17:33)
[2017-06-03] MEDS: LISINOPRIL 5 MG TAB PO SCH (09:13)
[2017-06-03] MEDS: CHOLECALCIFEROL VIT D3 1,000 UNITS TAB PO SCH (09:13)
[2017-06-03 10:51] LABS: INR 2.04 (0.83-1.16); PROTIME(PATIENT) 23.1 SEC (12.0-15.0)
--- NOTE | 2017-06-03 11:52 | SOAPPROG ---
SOAP Progress Note Assessment/Plan: Assessment: 86 yo woman with debility following craniotomy and evacuation of subdural hematoma on 05/15/2017, with initial rehabilitation stay complicated by syncopal episode 05/23/2017 with rehospitalization and diagnosis of pulmonary emboli as well as subclavian steal syndrome. * Debility. * PT and OT to optimize mobility and activities of daily living toward return to home at the supervision to modified independent level. 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 PER TEAM MEETING TODAY, MOST LIKELY WILL NEED SOME SUPERVISION FOR DAILY ACTIVITIES FOLLOWING DISCHARGE DUE TO MILD COGNITIVE DEFICITS. * Multiple bilateral pulmonary emboli, status post IV heparin in the hospital. * Continue warfarin, managed by pharmacy. * Continue enoxaparin at b.i.d. treatment dose. Discontinue enoxaparin when she has been therapeutic on warfarin x2 days. * Continue O2 as needed. Has had nocturnal hypoxemia. * Hypertension. Continue lisinopril. Monitor blood pressures. * Seizure prophylaxis, status post subdural hematoma. Discussed with neurosurgeon Dr. Angel, 05/30/2017. Discontinue levetiracetam. * Continue seizure precautions. * Hypothyroidism. Continue levothyroxine. * bowel program-will change Senokot p.r.n., MiraLax to p.r.n. and p.r.n. Tums. * Anemia. Improving on CBC 2 05/31/2017. * Pulmonary nodules seen on CT scanning in the hospital. Repeat chest CT in 6 months. FOLLOWUP: Follow up with Dr. Angel after discharge from rehabilitation. [place] removed 05/31/2017. Plan: 06/03/17 11:51 Subjective: no new complaints. doing well Objective: Vital Signs Temp Pulse Resp BP Pulse Ox 37.0 C 77 16 147/84 H 93 06/03/17 06:35 06/03/17 06:35 06/03/17 06:35 06/03/17 09:13 06/03/17 06:35 Laboratory Results 05/31/17 06:00 06/02/17 06/03/17 06/04/17 05:59 05:59 05:59 Intake Total 1715 500 Output Total 725 1425 Balance 990 -925 PT 23.1 SEC (12.0-15.0) H 06/03/17 06:30 INR 2.04 (0.83-1.16) H 06/03/17 06:30 Physical Exam - Physical Exam General Appearance: WD/WN, alert, no apparent distress Neck: supple Respiratory: normal breath sounds, No respiratory distress Cardiac/Chest: regular rate, rhythm, No edema Neuro/Psych: alert, normal mood/affect, oriented x 3 ICD10 Worksheet Patient Problems: Problems Problem Status Onset S/P craniotomy Acute SDH (subdural hematoma) Acute Syncope Acute
[2017-06-03] MEDS: WARFARIN SODIUM 5 MG TAB PO SCH (15:27)
[2017-06-03] MEDS: ACETAMINOPHEN 325 MG TAB PO PRN (17:32)
[2017-06-03] MEDS ORDERED: traZODone 50 MG TAB PO PRN (23:25)
[2017-06-04] MEDS: POLYETHYLENE GLYCOL 3350 17 GM PKT PO PRN (04:36)
[2017-06-04] MEDS: ENOXAPARIN 60 MG/0.6 ML SYR SC SCH (06:27)
[2017-06-04] MEDS: LEVOTHYROXINE 25 MCG TAB PO SCH (06:28)
[2017-06-04] MEDS: CHOLECALCIFEROL VIT D3 1,000 UNITS TAB PO SCH (08:01)
[2017-06-04] MEDS: LISINOPRIL 5 MG TAB PO SCH (08:01)
[2017-06-04 08:49] LABS: INR 2.25 (0.83-1.16); PROTIME(PATIENT) 24.9 SEC (12.0-15.0)
[2017-06-04] MEDS ORDERED: ACETAMINOPHEN 325 MG TAB PO PRN (13:17)
[2017-06-04] MEDS: WARFARIN SODIUM 5 MG TAB PO SCH (15:46)
--- NOTE | 2017-06-04 19:25 | SOAPPROG ---
SOAP Progress Note Assessment/Plan: Assessment: 86 yo woman with debility following craniotomy and evacuation of subdural hematoma on 05/15/2017, with initial rehabilitation stay complicated by syncopal episode 05/23/2017 with rehospitalization and diagnosis of pulmonary emboli as well as subclavian steal syndrome. * Debility. * PT and OT to optimize mobility and activities of daily living toward return to home at the supervision to modified independent level. 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 * Multiple bilateral pulmonary emboli, status post IV heparin in the hospital. * Continue warfarin, managed by pharmacy. * Continue enoxaparin at b.i.d. treatment dose. Discontinue enoxaparin when she has been therapeutic on warfarin x2 days. * Continue O2 as needed. Has had nocturnal hypoxemia. * Hypertension. Continue lisinopril. Monitor blood pressures. * Seizure prophylaxis, status post subdural hematoma. Discussed with neurosurgeon Dr. Angel, 05/30/2017. Discontinue levetiracetam. * Continue seizure precautions. * Hypothyroidism. Continue levothyroxine. * bowel program-will change Senokot p.r.n., MiraLax to p.r.n. and p.r.n. Tums. * Anemia. Improving on CBC 2 05/31/2017. * Pulmonary nodules seen on CT scanning in the hospital. Repeat chest CT in 6 months. FOLLOWUP: Follow up with Dr. Angel after discharge from rehabilitation. Nida removed 05/31/2017. Plan: 06/03/17 11:51 06/04/17 19:25 Subjective: No new complaints. A little bit of right hip weakness which she attributes to previous hip surgery Objective: Vital Signs Temp Pulse Resp BP Pulse Ox 36.6 C 88 18 116/70 92 06/04/17 18:27 06/04/17 18:27 06/04/17 18:27 06/04/17 18:27 06/04/17 18:27 Laboratory Results 05/31/17 06:00 06/03/17 06/04/17 06/05/17 05:59 05:59 05:59 Intake Total 500 418 858 Output Total 1425 350 Balance -925 68 858 PT 24.9 SEC (12.0-15.0) H 03/04/18 06:45 INR 2.25 (0.83-1.16) H 06/04/17 06:45 Physical Exam - Physical Exam General Appearance: WD/WN, alert, no apparent distress Respiratory: lungs clear, normal breath sounds Cardiac/Chest: regular rate, rhythm Neuro/Psych: alert, normal mood/affect ICD10 Worksheet Patient Problems: Problems Problem Status Onset S/P craniotomy Acute SDH (subdural hematoma) Acute Syncope Acute
[2017-06-05] MEDS: LEVOTHYROXINE 25 MCG TAB PO SCH (05:55)
[2017-06-05] MEDS: LISINOPRIL 5 MG TAB PO SCH (07:49)
[2017-06-05] MEDS: CHOLECALCIFEROL VIT D3 1,000 UNITS TAB PO SCH (07:49)
[2017-06-05] MEDS: POLYETHYLENE GLYCOL 3350 17 GM PKT PO PRN (07:54)
[2017-06-05 08:27] LABS: INR 2.32 (0.83-1.16); PROTIME(PATIENT) 25.5 SEC (12.0-15.0)
--- NOTE | 2017-06-05 13:01 | SOAPPROG ---
SOAP Progress Note Assessment/Plan: Assessment: 86 yo woman with debility following craniotomy and evacuation of subdural hematoma on 05/15/2017, with initial rehabilitation stay complicated by syncopal episode 05/23/2017 with rehospitalization and diagnosis of pulmonary emboli as well as subclavian steal syndrome. * Debility. * PT and OT to optimize mobility and activities of daily living toward return to home at the supervision to modified independent level. 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 PER TEAM MEETING MONDAY, MOST LIKELY WILL NEED SOME SUPERVISION FOR DAILY ACTIVITIES FOLLOWING DISCHARGE DUE TO MILD COGNITIVE DEFICITS. * Multiple bilateral pulmonary emboli, status post IV heparin in the hospital. * Continue warfarin, managed by pharmacy. INR FROM 3/52.32. RECEIVING COUMADIN 5 MG DAILY, ADJUSTED BY PHARMACY. ENOXAPARIN HAS BEEN DISCONTINUED * Hypertension. Continue lisinopril. Monitor blood pressures. * Seizure prophylaxis, status post subdural hematoma. Discussed with neurosurgeon Dr. Angel, 05/30/2017. Discontinue levetiracetam. * Continue seizure precautions. * Hypothyroidism. Continue levothyroxine. * bowel program-will change Senokot p.r.n., MiraLax to p.r.n. and p.r.n. Tums. * Anemia. Improving on CBC 2 05/31/2017. * Pulmonary nodules seen on CT scanning in the hospital. Repeat chest CT in 6 months. FOLLOWUP: Follow up with Dr. Angel after discharge from rehabilitation. Chelsea removed 05/31/2017. Subjective: SHE REPORTS SHE SLEPT WELL OVER THE WEEKEND. SHE IS HAVING NORMAL BOWEL MOVEMENTS. NO OTHER COMPLAINTS REPORTED BY PATIENT OR NURSING STAFF. Objective: Vital Signs Temp Pulse Resp BP Pulse Ox 37.2 C 79 16 113/78 93 06/05/17 06:16 06/05/17 06:16 06/05/17 06:16 06/05/17 06:16 06/05/17 06:16 Laboratory Results 05/31/17 06:00 06/04/17 06/05/17 06/06/17 05:59 05:59 05:59 Intake Total 418 1158 Output Total 350 Balance 68 1158 PT 25.5 SEC (12.0-15.0) H 06/05/17 06:00 INR 2.32 (0.83-1.16) H 06/05/17 06:00 Physical Exam - Physical Exam General Appearance: WD/WN, alert Respiratory: lungs clear, normal breath sounds Cardiac/Chest: No edema Abdomen: normal bowel sounds, non-tender, soft Skin: normal color, warm/dry Extremities: No swelling, No Margo's sign Neuro/Psych: speech abnormalities (EXPRESSIVE APHASIA) ICD10 Worksheet Patient Problems: Problems Problem Status Onset S/P craniotomy Acute SDH (subdural hematoma) Acute Syncope Acute
--- NOTE | 2017-06-05 14:30 | PDOREHIP ---
Admission [facility] - Admission - 3 Day Assessment Period Admission Date/Day 1: 05/30/17 Day 2: 05/31/17 Day 3: 06/01/17 Discharge [facility] - Discharge - 3 Day Assessment Period 2 Days Prior to Anticipated Discharge Date: 06/04/17 1 Day Prior to Anticipated Discharge Date: 06/05/17 Anticipated Discharge Date: 06/06/17 - Discharge Skin Conditions # Stage 1 Pressure Ulcers-Discharge: 0 # Stage 2 Pressure Ulcers-Discharge: 0 # of These Stage 2 Pressure Ulcers Present on Admission: 0 # Stage 3 Pressure Ulcers-Discharge: 0 # of These Stage 3 Pressure Ulcers Present on Admission: 0 # Stage 4 Pressure Ulcers-Discharge: 0 # of These Stage 4 Pressure Ulcers Present on Admission: 0 # Unstageable Pressure Ulcers (Non-remove Dress)-Discharge: 0 # These Unstageable Pressure Ulcers (NRD)-Present on Admit: 0 # Unstageable Pressure Ulcers (Slough/Eschar)-Discharge: 0 # These Unstageable Pressure Ulcers(Slough) Present on Admit: 0 # Unstageable Pressure Ulcers (Deep Tissue Injury)-Discharge: 0 # These Unstageable Pressure Ulcers (DTI) Present on Admit: 0
[2017-06-05] MEDS: WARFARIN SODIUM 5 MG TAB PO SCH (16:14)
[2017-06-06] MEDS: LEVOTHYROXINE 25 MCG TAB PO SCH (05:31)
[2017-06-06 07:26] VITALS: BP 113/77; PULSE 69; RESP 16; TEMP 98.2; O2SAT 94
[2017-06-06] MEDS: LISINOPRIL 5 MG TAB PO SCH (07:56)
[2017-06-06] MEDS: CHOLECALCIFEROL VIT D3 1,000 UNITS TAB PO SCH (07:56)
[2017-06-06 10:21] LABS: INR 2.3 (0.83-1.16); PROTIME(PATIENT) 25.3 SEC (12.0-15.0)
--- NOTE | 2017-06-06 12:15 | SOAPPROG ---
SOAP Progress Note Assessment/Plan: Assessment: 86 yo woman with debility following craniotomy and evacuation of subdural hematoma on 05/15/2017, with initial rehabilitation stay complicated by syncopal episode 05/23/2017 with rehospitalization and diagnosis of pulmonary emboli as well as subclavian steal syndrome. * Debility. * Outpatient therapies have been arranged by health care social worker. 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 PER TEAM MEETING MONDAY, MOST LIKELY WILL NEED SOME SUPERVISION FOR DAILY ACTIVITIES FOLLOWING DISCHARGE DUE TO MILD COGNITIVE DEFICITS. Continue outpatient speech therapy. * Multiple bilateral pulmonary emboli, status post IV heparin in the hospital. * Continue warfarin, managed by pharmacy. . RECEIVING COUMADIN 5 MG DAILY, ADJUSTED BY PHARMACY. ENOXAPARIN HAS BEEN DISCONTINUED * Hypertension. Continue lisinopril. Monitor blood pressures. * Seizure prophylaxis, status post subdural hematoma. Discussed with neurosurgeon Dr. Angel, 05/30/2017. Discontinue levetiracetam. * Continue seizure precautions. * Hypothyroidism. Continue levothyroxine. * bowel program-will change Senokot p.r.n., MiraLax to p.r.n. and p.r.n. Tums. * Anemia. Improving on CBC 2 05/31/2017. * Pulmonary nodules seen on CT scanning in the hospital. Repeat chest CT in 6 months. FOLLOWUP: Follow up with Dr. Angel after discharge from rehabilitation. Nida removed 05/31/2017. Subjective: No complaints this morning. She reports that she is ready for her discharge. No problems or issues reported by nursing Objective: Vital Signs Temp Pulse Resp BP Pulse Ox 36.8 C 69 16 113/77 94 06/06/17 07:26 06/06/17 07:26 06/06/17 07:26 06/06/17 07:26 06/06/17 07:26 Laboratory Results 05/31/17 06:00 06/05/17 06/06/17 06/07/17 05:59 05:59 05:59 Intake Total 1158 1100 480 Balance 1158 1100 480 PT 25.3 SEC (12.0-15.0) H 06/06/17 06:00 INR 2.30 (0.83-1.16) H 06/06/17 06:00 Physical Exam - Physical Exam General Appearance: WD/WN, alert, no apparent distress Respiratory: lungs clear, normal breath sounds Cardiac/Chest: regular rate, rhythm, No edema Abdomen: non-tender, soft Skin: warm/dry Extremities: No swelling, No Margo's sign ICD10 Worksheet Patient Problems: Problems Problem Status Onset S/P craniotomy Acute SDH (subdural hematoma) Acute Syncope Acute
[2017-06-06] MEDS: WARFARIN SODIUM 5 MG TAB PO SCH (15:23)
--- NOTE | 2017-06-07 10:02 | GDS ---
[f rep st] DISCHARGE SUMMARY REFERRING FACILITY: [facility]. IMPAIRMENT GROUP: 2.2. DATE OF ONSET: 05/15/2017. REHAB DIAGNOSIS: Debility following subdural hematoma and craniotomy for evacuation. ETIOLOGIC DIAGNOSIS: Traumatic closed head injury. DATE OF SURGERY: 05/15/2017. HISTORY OF PRESENT ILLNESS: Patient was admitted on 05/30/2017 to the inpatient rehab unit with a history of subdural hematoma following a fall that she suffered while on vacation in [place]. This was initially treated with bur hole drainage on 05/04/2017, and then she returned to the hospital on 2017 at [facility] with recurring symptoms. She underwent left frontal craniotomy and evacuation of acute on chronic subdural hematoma. She was initially admitted to the inpatient rehab unit on 05/23/2017, however, on , she had a syncopal fall with loss of consciousness and was transferred to [facility]. 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 Cerebral angiography was performed and showed patent [place] with good blood flow, so she was likely able to perfuse her brain and her left upper extremity via retrograde flow in the vertebral artery. Possible stenting of the subclavian was discussed with Interventional Radiology and it was concluded that this would be a complicated procedure requiring simultaneous stenting and since this was a high-risk procedure, it was decided that the procedure was not performed and she was returned to inpatient rehabilitation. It was recommended that she have an outpatient transcranial Doppler study to further evaluate blood flow to the brain and to the left upper extremity to determine whether or not there was an indication on that study for the above described procedure. ADMISSION MEDICATIONS: Acetaminophen 650, albuterol 2 puffs q.6 hours, cholecalciferol 100 units p.o. daily, enoxaparin 50 subcu q.12 hours. As an inpatient on the rehab unit, she underwent physical and occupational therapy to optimize mobility and activities of daily living. She was assessed and treated by Speech and Language Pathology for expressive aphasia and possible cognitive defects secondary to subdural hematoma and craniotomy. Bilateral pulmonary emboli were managed with warfarin with INR's managed by Pharmacy, she was continued on enoxaparin twice daily which was discontinued once she was therapeutic on warfarin for 2 days. Her hypertension was managed with lisinopril and she demonstrated normal and stable blood pressures during her inpatient stay. She had seizure prophylaxis initially with Keppra, which was discontinued at the recommendation of her neurosurgeon, Dr. Angel. Hypothyroidism was managed with levothyroxine. She was noted also to have pulmonary nodules on the CT scan and repeat chest CT was recommended in 6 months. Discharge physical exam: Appears bright and cheerful this morning. No acute distress. HEENT: Pupils equal round reactive to light and accommodation. EOMI. Tracks across all visual anaya. Lungs: Clear to auscultation cardiovascular: Regular rate and rhythm. No lower extremity edema. No right or left calf tenderness. Neurological: 4/5 strength proximal distal muscle groups both upper and lower extremities. Skin: Warm She did well in all therapies and progressed to ambulating independently with standby assist. She was independent in bed mobility and transfers. She will continue to have outpatient speech therapy to address aphasia and mild cognitive deficits. She was discharged to her home in medically stable conditions. DISCHARGE MEDICATIONS: Included Coumadin 5 mg daily. She will have INR's monitored daily on May 10, May 11, May 12 and then twice a week thereafter. Other discharge medications included calcium carbonate 500 three times daily, cholecalciferol 1000 units p.o. daily, levothyroxine 25 mcg p.o. daily, lisinopril 10 mg p.o. daily, MiraLAX, Senokot, trazodone 50 mg p.o. q.8 at bedtime p.r.n. sleep insomnia. /[id number]/MODL MTDD
== END 2017-06-06 15:39 | disposition home health service (06) | DRG 945 ==
LOC: BREH 05-30 14:30
PROVIDERS: ADMIT Internal Medicine; ATTEND Internal Medicine
PROC: F07Z8FZ Transfer Training Treatment using Assistive, Adaptive, Supportive or Protective Equipment (ICD-10-PCS; principal; 2017-05-30)
PROC: F07Z5FZ Bed Mobility Treatment using Assistive, Adaptive, Supportive or Protective Equipment (ICD-10-PCS; principal; 2017-05-30)
PROC: F08Z0FZ Bathing/Showering Techniques Treatment using Assistive, Adaptive, Supportive or Protective Equipment (ICD-10-PCS; principal; 2017-05-30)
PROC: F06Z1ZZ Speech-Language Pathology and Related Disorders Counseling Treatment (ICD-10-PCS; principal; 2017-05-30)
PROC: F08Z3FZ Feeding/Eating Treatment using Assistive, Adaptive, Supportive or Protective Equipment (ICD-10-PCS; principal; 2017-05-30)
PROC: F08Z1FZ Dressing Techniques Treatment using Assistive, Adaptive, Supportive or Protective Equipment (ICD-10-PCS; principal; 2017-05-30)
PROC: F08Z2FZ Grooming/Personal Hygiene Treatment using Assistive, Adaptive, Supportive or Protective Equipment (ICD-10-PCS; principal; 2017-05-30)
DX: S06.5X9D Traumatic subdural hemorrhage with loss of consciousness of unspecified duration, subsequent encounter (principal); R47.01 Aphasia; R41.841 Cognitive communication deficit; I26.99 Other pulmonary embolism without acute cor pulmonale; G45.8 Other transient cerebral ischemic attacks and related syndromes; I10 Essential (primary) hypertension; E03.9 Hypothyroidism, unspecified; I25.10 Atherosclerotic heart disease of native coronary artery without angina pectoris; D64.9 Anemia, unspecified; R91.1 Solitary pulmonary nodule; Z96.641 Presence of right artificial hip joint; R55 Syncope and collapse; W18.39XD Other fall on same level, subsequent encounter; Z91.81 History of falling
CPT/HCPCS: 92507-GN; 92522-GN; 92610-GN; 97110-GP; 97112-GO; 97112-GP; 97116-GP; 97162-GP; 97166-GO; 97530-GO; 97530-GP; 97535-GO; G0515-GO; J1650